=== PATIENT | female | born 1940 | race Caucasian/White ===

== ENCOUNTER → 2018-07-16 | Day surgery (SDC) | payer MEDICARE ==
[2018-07-15 16:08] LABS: BASOPHILS # (AUTO) 0.1 (0.0-0.1); BASOPHILS % 0.7 % (0.0-1.0); EOSINOPHILS # (AUTO) 0.1 (0.0-0.4); HEMOGLOBIN 12.9 g/dL (12.0-16.0); LYMPHOCYTES # (AUTO) 1.6 (1.0-3.2); MEAN CORPUSCULAR HEMOGLOBIN 31.9 pg (28-32); MEAN CORPUSCULAR HGB CONC 32.3 g/dL (31-35); MONOCYTES # (AUTO) 0.6 (0.2-0.8); MONOCYTES % 8.3 % (4.4-11.3); NEUTROPHILS # (AUTO) 4.6 (2.1-6.9); NEUTROPHILS % 65.6 % (38.7-80.0); PLATELET COUNT 187 x10e3/uL (140-360); RED BLOOD COUNT 4.04 x10e6/uL (3.6-5.1)
--- NOTE | 2018-07-15 16:19 | Diagnostic Imaging Report ---
EXAMINATION: CHEST 2 VIEWS INDICATION: \S\PER PROTOCOL \S\PRE ADMIT COMPARISON: None FINDINGS: PA and lateral views TUBES and LINES: None. LUNGS: Lungs are well inflated. Lungs are clear. There is no evidence of pneumonia or pulmonary edema. PLEURA: No pleural effusion or pneumothorax. HEART AND MEDIASTINUM: The cardiomediastinal silhouette is unremarkable. Mild atherosclerotic calcifications of the aortic arch. BONES AND SOFT TISSUES: Cervical spine fusion. Metallic hardware overlying the right humeral head. Mild degenerative changes of the thoracic spine. Surgical clips overlying the upper abdomen on lateral view. UPPER ABDOMEN: No free air under the diaphragm. IMPRESSION: No acute thoracic abnormality. Signed by: Dr. Mercedes High M.D. on 07/15/2018 4:15 PM
[2018-07-15 16:29] LABS: ANION GAP 14.2 mmol/L (8-16); BLOOD UREA NITROGEN 23 mg/dL (7-26); BUN/CREATININE RATIO 26 (6-25); CALCIUM 9.6 mg/dL (8.4-10.2); CARBON DIOXIDE 27 mmol/L (22-29); CHLORIDE 104 mmol/L (98-107); CREATININE, SERUM 0.88 mg/dL (0.57-1.11); EST GLOMERULAR FILTRATION RATE > 60 ML/MIN (60-); GLUCOSE 95 mg/dL (74-118); POTASSIUM 4.2 mmol/L (3.5-5.1); SODIUM 141 mmol/L (136-145)
[~2018-07-16] MED LIST: ALBUTEROL0.63 MG/3 INH; ASPIR 8181 MG PO; BOTULINUM TOXIN TYPE A 100 UNIT VIAL IM ONE; CETIRIZINE HCL10 MG PO; DEXAMETHASONE SOD PHOS INJ 4 MG/ML VIAL ONE; FLONASE; GABAPENTIN100 MG PO; GENTAMICIN 80MG/NS 100 ML 200 ML IV ONE; IOPAMIDOL 610MG/1ML 300 MG/ML VIAL IV ONE; IPRAT-ALBUT 0.5-3 ML INH; LIDOCAINE HCL 2% LOCAL INJ 5 ML SDV VIAL INJ ONE; LISINOPRIL10 MG PO; MONTELUKAST SOD10 MG PO; NORCO 5-325 TA1 EACH PO; OMEPRAZOLE40 MG PO; ONDANSETRON HCL INJ 2 MG/ML VIAL ONE; ONE DAILY1 EAC1 PO; PROPOFOL IV EMULSION 10 MG/ML 20 ML VIAL ONE; ROCURONIUM BROMIDE 10 MG/ML 5ML VIAL ONE; SEVOFLURANE INHAL SOLN 250 ML PEN BTL ONE; SIMVASTATIN40 MG PO; SYMBICORT 80-10.2 GM INH; TESSALON PERLE100 MG PO; TIZANIDINE HCL4 MG PO; TRIAMTERENE-HCTZ1 EA PO; VALIUM5 MG PO; VIT D3 PO; VIT E PO
[2018-07-16 13:05] VITALS: BP 122/72
--- OUTSIDE RECORDS SUMMARY | 2018-07-22 12:33 | XMS REPORT | Summary of Care ---
Author Author [facility] Outpatient Imaging [facility] Outpatient Imaging [place] Address Unknown Phone Unavailable Encounter HQ Valdor_leticia(FIN) [id number] Date(s): 10/19/15 - 10/19/15 [facility] Outpatient Imaging [place] [address] [place] [address] [phone] Discharge Disposition: Home Attending Physician: Amadou Gregory MD Vital Signs No data available for this section Problem List Condition Effective Dates Status Health Status Informant Chest Active pain(Confirmed) HLD - Active Hyperlipidemia(Confi rmed) HTN Resolved (hypertension)(Confi rmed) HTN - Active Hypertension(Confirm ed) Hypercholesterolemia Resolved (Confirmed) Implant(Confirmed)1 Active 1Kidney and bladder device that is implanted in the Left hip Allergies, Adverse Reactions, Alerts Substance Reaction Severity Status cipro Active Tape Active Medications No data available for this section Results No data available for this section Immunizations Vaccine Date Refusal Reason pneumococcal 23-valent vaccine 02/03/11 Procedures Procedure Date Related Diagnosis Body Site Abdominal hysterectomy Appendectomy Cataract surgery1 Cholecystectomy Kidney biopsy2 Replacement of electronic stimulator into bladder3 Suspension of bladder4 Tonsillectomy 1bilat 2removal of kidney stones 3Placed in left hip 4x3 Social History No data available for this section Assessment and Plan No data available for this section
--- OUTSIDE RECORDS SUMMARY | 2018-07-22 12:33 | XMS REPORT | Summary of Care ---
Author Author [facility] Outpatient Imaging [facility] Outpatient Imaging [place] Address Unknown Phone Unavailable Encounter HQ Encntr_alias(FIN) [id number] Date(s): 11/13/17 - 11/13/17 [facility] Outpatient Imaging [place] [address] [facility] [address] [place], [place] [address]- [phone] Encounter Diagnosis Encounter for screening mammogram for malignant neoplasm of breast (Final) - 11/14/17 Discharge Disposition: Home or Self Care Attending Physician: Amadou Gregory MD Vital Signs No data available for this section Problem List Condition Effective Dates Status Health Status Informant Chest Active pain(Confirmed) HLD - Active Hyperlipidemia(Confi rmed) HTN Resolved (hypertension)(Confi rmed) HTN - Active Hypertension(Confirm ed) Hypercholesterolemia Resolved (Confirmed) Allergies, Adverse Reactions, Alerts Substance Reaction Severity Status cipro Active Tape Active Medications No data available for this section Results No data available for this section Immunizations Given and Recorded Vaccine Date Status Refusal Reason pneumococcal 23-valent vaccine 02/03/11 Given Procedures Procedure Date Related Diagnosis Body Site Status Abdominal hysterectomy Completed Appendectomy Completed Cataract surgery1 Completed Cholecystectomy Completed Kidney biopsy2 Completed Replacement of electronic stimulator into Completed bladder3 Suspension of bladder4 Completed Tonsillectomy Completed 1bilat 2removal of kidney stones 3Placed in left hip 4x3 Social History No data available for this section Assessment and Plan No data available for this section
--- OUTSIDE RECORDS SUMMARY | 2018-07-22 12:33 | XMS REPORT | Summary of Care ---
Author Author [facility] Outpatient Imaging [facility]patient Imaging [place] Address Unknown Phone Unavailable Encounter HQ Toya_leticia(FIN) [id number] Date(s): 12/16/17 - 12/16/17 [facility] Outpatient Imaging [place] [address] [facility] [address] [place], [place] [address]- [phone] Encounter Diagnosis Unspecified abdominal pain (Final) - 12/20/17 Calculus of kidney (Final) - Other specified disorders of kidney and ureter (Final) - Cyst of kidney, acquired (Final) - Discharge Disposition: Home or Self Care Attending [...]
--- OUTSIDE RECORDS SUMMARY | 2018-07-22 12:33 | XMS REPORT | Summary of Care ---
Author Author [facility] Outpatient Imaging [facility] Outpatient Imaging [place] Address Unknown Phone Unavailable Encounter HQ Valdor_leticia(FIN) [id number] Date(s): 02/20/18 - 02/20/18 [facility] Outpatient Imaging [place] [address] [facility] [address] [place] [address]- [phone] Discharge Disposition: Home or Self Care Attending [...]
--- OUTSIDE RECORDS SUMMARY | 2018-07-22 12:33 | XMS REPORT | Summary of Care ---
Author Organization Unknown Address Unknown Phone Unavailable Encounter HQ Encntr_leticia(FIN) [id number] Date(s): 08/23/14 - 08/23/14 [facility] [address] Discharge Disposition: Home Physician Attending: Amadou Gregory MD Physician_Referring: Amadou Gregory MD Reason for Visit BREAST MASS Problem List Condition Effective Dates Status Health Status Informant Chest Active pain(Confirmed) HLD - Active Hyperlipidemia(Confi rmed) HTN Resolved (hypertension)(Confi rmed) HTN - Active Hypertension(Confirm ed) Hypercholesterolemia Resolved (Confirmed) Implant(Confirmed)1 Active 1Kidney and bladder device that is implanted in the Left hip Allergies, Adverse Reactions, Alerts Substance Reaction Severity Status cipro Active Tape Active Medications No data available for this section Medications Administered During Your Visit No data available for this section Immunizations Vaccine Date Refusal Reason pneumococcal 23-valent vaccine 02/03/11
--- OUTSIDE RECORDS SUMMARY | 2018-07-22 12:33 | XMS REPORT | Summary of Care ---
Author Author [facility] Kuldip [facility] Organization [facility] Address Unknown Phone Unavailable Encounter HQ Carmenntr_leticia(FIN) [id number] Date(s): 12/17/16 - 01/15/17 [facility] Kuldip [facility] Discharge Disposition: Home or Self Care Attending Physician: Aston Rodgers MD Vital Signs No data available for [...]
--- OUTSIDE RECORDS SUMMARY | 2018-07-22 12:33 | XMS REPORT | Summary of Care ---
Author Author [facility] Outpatient Imaging [facility] Outpatient Imaging [place] Address Unknown Phone Unavailable Encounter HQ Armando(FIN) [id number] Date(s): 01/05/16 - 01/05/16 [facility] Outpatient Imaging [place] [address] [place], [place] [address]- [phone] Discharge Disposition: Home Attending Physician: Alvarado Angeles MD Vital Signs No data available for [...]
--- OUTSIDE RECORDS SUMMARY | 2018-07-22 12:33 | XMS REPORT | Summary of Care ---
Author Organization Unknown Address Unknown Phone Unavailable Encounter HQ Armando(FIN) [id number] Date(s): 07/23/14 - 07/23/14 [facility] Outpatient Imaging [place] [address] [place], [place] [address] Discharge Disposition: Home Physician Attending: Amadou Gregory MD Reason for Visit V76.11 - SCREEN MAMMOGRA Problem List Condition Effective Dates Status Health [...]
--- OUTSIDE RECORDS SUMMARY | 2018-07-22 12:33 | XMS REPORT | Summary of Care ---
Author [facility] Organization [facility] Address Unknown Phone Unavailable Encounter HQ Valdor_leticia(FIN) [id number] Date(s): 01/16/17 - 02/14/17 [facility] Discharge Disposition: Home or Self Care Attending [...]
--- OUTSIDE RECORDS SUMMARY | 2018-07-22 12:33 | XMS REPORT | Summary of Care ---
Author Organization Unknown Address Unknown Phone Unavailable Encounter HQ Toya_leticia(FIN) [id number] Date(s): 09/16/14 - 09/16/14 [facility] Outpatient Imaging - [place] [address] Discharge Disposition: Home Physician Attending: Soham Woods MD Reason for Visit V13.01 - PRSNL HST URNR Problem List Condition Effective Dates Status Health [...]
--- OUTSIDE RECORDS SUMMARY | 2018-07-22 12:33 | XMS REPORT | Summary of Care ---
Author Author [facility] Outpatient Imaging [facility] Outpatient Imaging [place] Address Unknown Phone Unavailable Encounter HQ Armando(FIN) [id number] Date(s): 02/01/16 - 02/01/16 [facility] Outpatient Imaging [place] [address] [place] [address] [phone] Discharge Disposition: Home Attending Physician: Alvarado Angeles [...]
--- OUTSIDE RECORDS SUMMARY | 2018-07-22 12:33 | XMS REPORT | Summary of Care ---
Author [facility] Organization [facility] Address Unknown Phone Unavailable Encounter HQ Toya_leticia(FIN) [id number] Date(s): 02/26/17 - 03/27/17 [facility] Discharge Disposition: Home or Self [...]
--- OUTSIDE RECORDS SUMMARY | 2018-07-22 12:33 | XMS REPORT | Summary of Care ---
Author Author [facility] Organization [facility] Address Unknown Phone Unavailable Encounter HQ Armando(FIN) [id number] Date(s): 10/04/17 - 11/02/17 [facility] Encounter Diagnosis Postlaminectomy syndrome, not elsewhere classified (Final) - 11/06/17 Cervicalgia (Final) - Weakness (Final) - Radiculopathy, cervical region (Final) - Discharge Disposition: Home or Self Care Attending Physician: Ramona Regalado MD Vital Signs No data available for [...]
--- OUTSIDE RECORDS SUMMARY | 2018-07-22 12:33 | XMS REPORT | Summary of Care ---
Author Author [facility] Outpatient Imaging [facility] Outpatient Imaging [place] Address Unknown Phone Unavailable Encounter HQ Carmenntr_leticia(FIN) [id number] Date(s): 05/22/17 - 05/22/17 [facility] Outpatient Imaging [place] [address] [facility] [address] [place], [place] [address] [phone] Discharge Disposition: Home or Self Care Attending [...]
--- OUTSIDE RECORDS SUMMARY | 2018-07-22 12:33 | XMS REPORT | Summary of Care ---
Author Author [facility] Kuldip [facility] Organization [facility] Address Unknown Phone Unavailable Encounter HQ Toya_leticia(FIN) [id number] Date(s): 09/04/17 - 10/03/[facility] Discharge Disposition: Home or Self Care Attending [...]
--- OUTSIDE RECORDS SUMMARY | 2018-07-22 12:33 | XMS REPORT | Summary of Care ---
Author Author [facility] Organization [facility] Address Unknown Phone Unavailable Encounter HQ Armando(MASOUD) [id number] Date(s): 05/09/15 - 05/09/15 [facility] [address] [place] [address]- Discharge Disposition: Home Attending Physician: Amadou Gregory MD Referring Physician: Amadou Gregory MD Vital Signs No [...]
--- OUTSIDE RECORDS SUMMARY | 2018-07-22 12:33 | XMS REPORT | Summary of Care ---
Author Author [facility] Outpatient Imaging [facility] Outpatient Imaging [place] Address Unknown Phone Unavailable Encounter HQ Valdor_leticia(FIN) [id number] Date(s): 12/16/15 - 12/16/[address] [facility] Outpatient Imaging [place] [address] [place] [address]- [phone] Discharge Disposition: Home Attending Physician: Amadou Gregory [...]
--- OUTSIDE RECORDS SUMMARY | 2018-07-22 12:33 | XMS REPORT | Summary of Care ---
Author Author [facility] Outpatient Imaging [facility] Outpatient Imaging [place] Address Unknown Phone Unavailable Encounter HQ Valdor_leticia(FIN) [id number] Date(s): 04/17/16 - 04/17/16 [facility] Outpatient Imaging [place] [address] [place] [address] [phone] Discharge Disposition: Home Attending Physician: Amadou Gregory [...]
--- OUTSIDE RECORDS SUMMARY | 2018-07-22 12:33 | XMS REPORT | Continuity of Care Document ---
Author Author [facility] Interface Address Unknown Phone Unavailable Problems Problem Status Onset Date Classification Date Reported Comments Source Unspecified abdominal pain 12/21/2017 03/24/2018 [facility] Encounter for screening mammogram for malignant neoplasm of breast 11/15/2017 02/19/2018 [facility] Postlaminectomy syndrome, not elsewhere classified 11/07/2017 02/08/2018 [facility] CERVICAL PAIN Active 03/21/2017 [facility] S/P RT SHOULDER RTC REPAIR Active 09/06/2016 [facility] S/P REVERSE RTC REPAIR Active 09/06/2016 [facility] 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 Active 08/09/2016 [facility] M79.645 - PAIN IN LEFT FINGER(S) [facility] Active 05/04/2015 [facility] 174.3 BREAST CANCER Active 05/04/2015 [facility] BREAST MASS Active 08/18/2014 [facility] 793.80 Active 08/10/2014 [facility] Discharge Diagnosis: Fall 06/20/2014 06/22/2014 [facility] Discharge Diagnosis: Neck pain 06/20/2014 06/22/2014 [facility] FALL Active 06/20/2014 [facility] Chest pain Active Problem 03/24/2018 [facility], [facility] [place],[facility] HLD - Hyperlipidemia Active Problem 03/24/2018 [facility], [facility] [place],[facility] HTN (<span ID="[id number]">Confirmed</span>) Resolved Problem 07/15/2015 [facility], [facility] [place] HTN - Hypertension Active Problem 03/24/2018 [facility], [facility] [place],[facility] Hypercholesterolemia Resolved Problem 03/24/2018 [facility], [facility] [place],[facility] HTN (<span ID="[id number]">Confirmed</span>) Resolved Problem 03/24/2018 [facility] Calculus of kidney 03/24/2018 [facility] Other specified disorders of kidney and ureter 03/24/2018 [facility] Cyst of kidney, acquired 03/24/2018 [facility] Implant<sup>1</sup> Active Problem 10/06/2017 Kidney and bladder device that is implanted in the Left hip [facility], [facility] [place],[facility] Cervicalgia 02/08/2018 [facility] Weakness 02/08/2018 [facility] Radiculopathy, cervical region 02/08/2018 [facility] MAL NAVARRO BREAST LOW-INNER Active [facility] MALIG NEOPLASM OF LOWER-INNER QUADRANT O Active [facility] OTH ABN AND INCONCLUSIVE FINDINGS ON DX Active [facility] Medications Medication Details Route Status Patient Instructions Ordering Provider Order Date Source Cyclobenzaprine hydrochloride 10 MG Oral Tablet [Flexeril] 10 mg=1 tab, PO, TID, for spasm, # 30 tab, 0 Refill(s) Active 06/21/2014 [facility] Flexeril 10 mg, Route: PO, ONCE, Dosing Weight 81.818, kg, Priority: STAT, Start date: 06/20/14 19:43:00, Stop date: 06/20/14 19:43:00 Inactive 06/21/2014 [facility] Allergies, Adverse Reactions, Alerts Substance Category Reaction Severity Reaction type Status Date Reported Comments Source cipro Assertion Drug allergy Active [facility] [place] Tape Assertion Propensity to adverse reactions to substance Active [facility] [place] Immunizations Immunization Date Given Site Status Last Updated Comments Source pneumococcal 23-valent vaccine 02/03/2011 Left deltoid completed Toi [facility], [facility] [place],[facility] Results Order Name Results Value Reference Range Date Interpretation Comments Source Abdomen/Pelvis wo IV contrast CT Abdomen/Pelvis wo IV contrast CT Clinical Indication: N20.0 - CALCULUS OF KIDNEY. Comparison: CT abdomen pelvis 06/05/2008, 03/25/2007 TECHNIQUE: Helical imaging was performed from diaphragm through the symphysis with multiplanar reformations obtained. IV CONTRAST: None GI CONTRAST: None CT imaging performed at this location utilizes radiation dose optimization techniques which include one or more of the following: -Automated exposure control -Adjustment of the mA and/or kV according to patient size -Use of iterative reconstruction technique CT Radiation Dose DLP 879 mGy-cm FINDINGS: LUNG BASES: There are coronary artery calcifications. HEPATOBILIARY: The liver is hypodense. The gallbladder is surgically absent. SPLEEN: The spleen is normal in size. 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 PANCREAS: The pancreas has a grossly normal noncontrast appearance. ADRENAL GLANDS: The adrenal glands are normal. KIDNEYS: There are punctate 2 mm nonobstructing renal calyceal calculi bilaterally. A 3.1 cm cyst is present at the mid to lower pole of the right kidney. There is mild right pelvocaliectasis to the level of the ureteropelvic junction. No obstructing stone. No perinephric collections. There is bandlike scarring in the pararenal fat at the region of the lower pole of the right kidney which is similar to multiple prior exams. BOWEL: Evaluation of the bowel is limited without intravenous or oral contrast. There is a small sliding hiatal hernia. The stomach is unremarkable. The bowel is normal in caliber. The appendix is not seen. Colonic diverticulosis without acute inflammatory change. RETROPERITONEUM/PERITONEUM: There is no free fluid. No free air. LYMPH NODES: No adenopathy. VASCULATURE: Atheromatous changes are present within the aorta without aneurysm. PELVIS: There is a small amount of gas within the bladder lumen. There are calcifications within the bladder lumen measuring up to 5 mm. The uterus is surgically absent. MUSCULOSKELETAL: There are postsurgical changes of lumbosacral spinal fusion. Abandoned sacral stimulator lead is seen on the left. IMPRESSION: 1. Mild right pelvocaliectasis to the level of the ureteropelvic junction. No obstructing stone. There is some scarring in the pararenal fat on the right which may involve the UPJ. This is similar to prior exams dating back to 2006. 2. Bilateral nonobstructing nephrolithiasis 3. Bladder calculi 4. Trace gas within the bladder lumen may be related to recent instrumentation. Correlate with urinalysis to exclude infection 5. Right renal cyst 6. Hepatic steatosis 7. 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 FINDINGS: ROTATOR CUFF: 1. Mild thickening and moderate abnormal signal throughout the supraspinatus insertion compatible moderate tendinopathy. No discrete supraspinatus tear. 2. Normal infraspinatus. 3. Normal subscapularis. 4. No rotator cuff muscle atrophy. 5. High riding humeral head which appears secondary to bulky osteophytes of the inferior aspect of the glenohumeral joint resulting in impingement of the acromial undersurface on the supraspinatus bursal surface fibers. LABRUM AND BICEPS TENDON: 6. Multifocal degenerative labral tearing. 7. The biceps tendon is intact and located normally within the bicipital groove. OSSEOUS/ARTICULAR: 8. Mild hypertrophic acromioclavicular arthropathy with mild inferior spurring. 9. Os acromiale is noted, a finding which can be associated with external shoulder impingement. 10. Extensive chronic full-thickness cartilage loss of the humeral head and glenoid articular surfaces with bulky degenerative spurring at the inferior aspect of the glenohumeral joint and subchondral cystic change within the inferior glenoid. 11. No fracture, bone contusion, or aggressive osseous lesion. IMPRESSION: 1. Moderate supraspinatus insertional tendinopathy without a tear. 2. Severe glenohumeral degenerative arthrosis demonstrating extensive chronic full- thickness cartilage loss and bulky degenerative spurring at the inferior aspect of the glenohumeral joint and subchondral cystic change within the inferior glenoid. 3. High riding humeral head which appears secondary to bulky osteophytes of the inferior aspect of the glenohumeral joint resulting in impingement of the acromial undersurface on the supraspinatus bursal surface fibers. 4. Os acromiale is noted, a finding which can be associated with external shoulder impingement. 5. Mild hypertrophic acromioclavicular arthropathy with mild inferior spurring. 6. Multifocal degenerative tearing of the labrum. Thank you referring your patient to [facility] and [facility]. SL: [id number] 07/17/2018 - - Read by: Ryne Menendez MD Dictated Date/time: 07/17/18 13:26 Electronically Signed by: Ryne Menendez MD 07/17/18 13:35 FINAL REPORT [facility] Knee 3 views DX Knee 3 views DX Study: Left knee, 3 views Clinical Indication: M25.562 - ACUTE PAIN Comparison: None FINDINGS: Multiple views of the left knee show moderate medial femorotibial compartment osteoarthrosis with joint space narrowing and marginal osteophyte formation. No acute bony fracture or joint dislocation is seen. No joint effusion is noted. Soft tissues are unremarkable. IMPRESSION: Moderate medial femorotibial compartment osteoarthrosis of the left knee. SL: [id number] 02/20/2018 - - Read by: Talha Miner MD Dictated Date/time: 02/20/18 16:42 Electronically Signed by: Talha Miner MD 02/20/18 16:43 FINAL REPORT [facility] Shoulder series DX Shoulder series DX Study: Left shoulder, 3 views Clinical Indication: M25.512 - ACUTE PAIN Comparison: None FINDINGS: Multiple views of the left shoulder show severe glenohumeral joint osteoarthrosis with joint space narrowing and prominent marginal osteophyte formation. No acute bony fracture or joint dislocation is seen. Mild AC joint osteoarthrosis is noted. Fusion hardware in the lower cervical spine is seen. Soft tissues are unremarkable. IMPRESSION: Severe glenohumeral joint osteoarthrosis. SL: [id number] 02/20/2018 - - Read by: Talha Miner MD Dictated Date/time: 02/20/18 16:41 Electronically Signed by: Talha Miner MD 02/20/18 16:42 FINAL REPORT [facility] Retroperitoneal Complete US Retroperitoneal Complete US EXAM: US RETROPERITONEAL HISTORY: 77 years year-old Female with N20.0 Calculus of kidney; R10.9 Unspecified abdominal pain COMPARISON: US Retroperitoneal 11/22/2014 TECHNIQUE: Multiple longitudinal and transverse real time sonographic images of the kidneys and urinary bladder are obtained. FINDINGS: Right kidney: Size: 10.3 cm. The kidney is normal in size, shape, contour, and position. The cortex is normal in thickness and the corticomedullary differentiation is maintained. Stable mild right pelvocaliectasis. Echogenic focus measuring 4 mm noted in the right kidney likely representing a nonobstructing stone. Septated cyst noted in inferior pole measuring approximately 2.7 x 2.7 x 2.6 cm, previously 2.7 x 2.2 x 2.2 cm. Left kidney: Size: 10.1 cm. The kidney is normal in size, shape, contour, and position. The cortex is normal in thickness and the corticomedullary differentiation is maintained. Mild left pelviectasis, stable. Cyst noted in the inferior pole measuring approximately 1.5 x 1.1 x 1.5 cm. Bladder: Partial distension of the urinary bladder with anechoic fluid is noted. No wall thickening or mass is seen. Bilateral bladder jets noted. Aorta and Inferior Vena Cava: The visualized abdominal aorta is unremarkable. The iliac bifurcation was not well seen due to bowel gas. The intrahepatic IVC is patent. IMPRESSION: 1. Stable mild bilateral pelviectasis, possibly representing extrarenal pelvises. 2. Bilateral renal cysts. 3. Nonobstructing right intrarenal stone. SL: [id number] 12/16/2017 - - Read by: Eloise Gore MD Dictated Date/time: 12/16/17 10:01 Electronically Signed by: Eloise Gore MD 12/16/17 10:08 FINAL REPORT [facility] Breast Mammo Scrn [facility] incl CAD MA Breast Mammo Scrn [facility] incl CAD MA BILATERAL DIGITAL SCREENING MAMMOGRAM WITH CAD: 11/13/2017 CLINICAL: /Routine. Current study was evaluated with a Computer Aided Detection (CAD) system. COMPARISON:Comparison is made to exams dated: 08/20/2016 mammogram, 05/09/2015 mammogram, 08/18/2014 mammogram - [facility], and 07/23/2014 mammogram - [facility]. TECHNIQUE: Mammographic views were obtained using digital acquisition. Current study was also evaluated with a Computer Aided Detection (CAD) system. FINDINGS: There are scattered fibroglandular densities in both breasts. There are benign calcifications in both breasts. There also are post operative findings in the right breast. No significant masses, calcifications, or other findings are seen in either breast. There has been no significant interval change. IMPRESSION: BENIGN RECOMMENDATION:There is no mammographic evidence of malignancy. A 1 year screening mammogram is recommended.(11/14/2018) This exam was interpreted at [id number] for KELSIE [place] 15. Professional services are provided by the [facility]. Ashkan Bruce M.D., cm/marina:11/13/2017 11:54:37 [employer](s): RT Carey(R)(M), [facility] letter sent: BI-RADS 1/2 Mammogram BI-RADS: 2 Benign 11/13/2017 - - Read by: Sina Alexander MD Dictated Date/time: 11/13/17 11:54 Electronically Signed by: Sina Alexander MD 11/13/17 11:54 FINAL REPORT [facility] Ankle 3 views DX Ankle 3 views DX REASON FOR EXAM: M25.572, M25.472 - PAIN, SWELLING. COMPARISON: None. FINDINGS: 3 views of the left ankle. There is mild bimalleolar soft tissue swelling. The ankle mortise appears intact. There is a small plantar calcaneal enthesophyte. There are small bony spurs at the dorsal aspect of the medial cuneiform. There is no demonstrable fracture, dislocation or radiopaque foreign body. IMPRESSION: 1. Mild bimalleolar soft tissue swelling. 2. No demonstrable acute osseous abnormality of the left ankle. SL: 16 10/29/2017 - - Read by: Rickie Cabrales MD Dictated Date/time: 10/29/17 15:16 Electronically Signed by: Rickie Cabrales MD 10/29/17 15:25 FINAL REPORT [facility] Spine cervical 2 or 3 view DX Spine cervical 2 or 3 view DX REASON FOR EXAM: M54.2. Neck pain. COMPARISON: Cervical spine series 01/05/2016. FINDINGS: AP, lateral, swimmer's and open-mouth views of the cervical spine were performed. 4 images are submitted. There are postsurgical changes of anterior fusion from C5 through C7. There is no demonstrable hardware malfunction. There is mature bony fusion of the vertebral endplates at C5-C6 and C6-C7. There is straightening of the normal cervical lordosis. There is approximately 1 to 2 mm anterolisthesis of C2 on C3, 1 to 2 mm anterolisthesis of C3 on C4, 1 to 2 mm retrolisthesis of C4 on C5 and 3 to 4 mm anterolisthesis of C7 on T1. There are mild degenerative changes of the atlantodens interval. There are small anterior marginal osteophytes at C3 and C4. There is diffuse disc space narrowing at C3-C4, C4-C5 and C7-T1. There is uncal vertebral joint hypertrophy at C3-C4 and C4-C5. There is multilevel facet arthropathy. There is no demonstrable fracture, dislocation or prevertebral soft tissue swelling. IMPRESSION: 1. No significant interval change from 01/05/2016. 2. Status post anterior fusion from C5 through C7. 3. Degenerative changes and multilevel grade 1 listhesis of the cervical spine as described above. SL: 16 05/22/2017 - - Read by: Rickie Cabrales MD Dictated Date/time: 05/22/17 13:06 Electronically Signed by: Rickie Cabrales MD 05/22/17 13:22 FINAL REPORT [facility] Digital Mammo DX [place] Digital Mammo DX [place] - DIGITAL MAMMO DX [facility] BILATERAL DIGITAL DIAGNOSTIC MAMMOGRAM WITH CAD: 08/20/2016 CLINICAL: Fibrocystic Disease right IDC s/p lumpectomy and XRT. Current study was evaluated with a Computer Aided Detection (CAD) system. Comparison is made to exams dated: 05/09/2015 mammogram, 08/18/2014 mammogram - [facility], 07/23/2014 mammogram - [facility], 06/04/2012 mammogram, 05/31/2010 mammogram and 02/16/2008 mammogram - [facility]. There are scattered fibroglandular densities in both breasts. The patient is status post lumpectomy right breast. There are post operative and radiation changes in the right breast. There are benign calcifications in both breasts. No significant masses, calcifications, or other findings are seen in either breast. There has been no significant interval change. Breast ultrasound was offered to the patient but was declined. IMPRESSION: BENIGN The patient is status post lumpectomy right breast. There is no mammographic evidence of malignancy. A 1 year screening mammogram is recommended. The results were reviewed with the patient. Josefina rileyt/:08/20/2016 13:50:21 [place] [employer]other: Radha Sotelo, [facility] This exam was dictated and interpreted by [id number] for [facility]. letter sent: Normal exam Mammogram BI-RADS: 2 Benign 08/20/2016 - - Read by: Josefina Reno MD Dictated Date/time: 08/20/16 13:50 Electronically Signed by: Josefina Reno MD 08/20/16 13:50 FINAL REPORT [facility] Ankle 2 views DX Ankle 2 views DX Study: Right ankle, 3 views Clinical Indication: M79.671, M25.571 / RT. FOOT AND ANKLE PAIN Comparison: None FINDINGS: Multiple views of the right ankle show no acute bony fracture or joint dislocation. Ankle mortise is congruent. Soft tissues are unremarkable. IMPRESSION: No acute bony abnormality of the right ankle. SL: [id number] 04/17/2016 - - Read by: Talha Miner MD Dictated Date/time: 04/17/16 09:47 Electronically Signed by: Talha Miner MD 04/17/16 09:47 FINAL REPORT [facility] [place] Foot 2 views DX Foot 2 views DX Study: Right foot, 2 views Clinical Indication: M79.671, M25.571 / RT. FOOT AND ANKLE PAIN Comparison: None FINDINGS: 2 views of the right foot show no acute bony fracture, joint dislocation, or suspicious osseous lesion. The bones are diffusely demineralized. Os navicularis is noted. Mild to moderate midfoot osteoarthrosis is seen. Soft tissues are unremarkable. IMPRESSION: 1. No acute bony abnormality of the right foot. 2. Mild to moderate midfoot osteoarthrosis. SL: [id number] 04/17/2016 - - Read by: Talha Miner MD Dictated Date/time: 04/17/16 09:47 Electronically Signed by: Talha Miner MD 04/17/16 09:48 FINAL REPORT [facility] [place] Shoulder wo contrast MRI Shoulder wo contrast MRI EXAM: MRI of the right shoulder without contrast INDICATION: M75.101 Unspecified rotator cuff tear or rupture of right shoulder, not specified as traumatic, right shoulder pain COMPARISON: Plain films of the right shoulder from 01/05/2016 TECHNIQUE: Multiplanar, multisequence magnetic resonance imaging of the right shoulder was performed without the administration of intravenous gadolinium contrast. FINDINGS: Glenohumeral joint: Negative for acute bony fracture or joint dislocation. Severe glenohumeral joint osteoarthrosis is seen with joint space narrowing and marginal osseous spurring. Large areas of full-thickness cartilage loss throughout the anterosuperior glenoid fossa and superior humeral head are seen with underlying subchondral cystic changes along the superior humeral head. Mild subchondral cystic change along the inferior glenoid is seen. Degenerative tear of the superior glenoid labrum is seen. Small to moderate-sized glenohumeral joint effusion and synovitis is seen, communicating with the subacromial- subdeltoid bursa. Osseous acromion complex: Mesoacromion type os acromiale is seen with trace fluid within the synchondrosis. Mild AC joint osteoarthrosis is seen. Rotator cuff tendons: Mild to moderate infraspinatus tendinosis is seen. There is a full-thickness tear of the supraspinatous tendon with associated delaminating morphology measuring 1.5 cm AP dimension with 2 cm proximal tendon retraction of the torn articular surface fibers and 6 mm proximal tendon retraction of the torn bursal surface fibers. Additional bursal surface partial- thickness tearing of the supraspinatous tendon at the level of the AC joint is also seen. Interstitial fluid tracks proximally along the supraspinatus myotendinous unit. High-grade articular surface partial-thickness tears of the remaining posterior fibers of the supraspinatus tendon are seen. Subscapularis and teres minor tendons are intact. Biceps tendon: Intracapsular biceps tendinosis is seen. No tendon subluxation or dislocation is noted. 9 mm loose body within the biceps tendon sheath of the level of the proximal humeral metaphysis is seen. Soft tissues: Moderate atrophy of the supraspinatus muscle belly is seen. Fatty infiltration of the infraspinatus muscle belly is also seen. IMPRESSION: 1. Severe glenohumeral joint osteoarthrosis with small to moderate-sized glenohumeral joint effusion and synovitis. 2. Full-thickness tear of the supraspinatus tendon with delaminating morphology measuring 1.5 cm AP dimension. There is 2 cm proximal retraction of the torn articular surface fibers and 6 mm tendon retraction of the torn bursal surface fibers. High-grade articular surface partial-thickness tears of the remaining posterior fibers of the supraspinatus tendon are seen. Bursal surface partial- thickness tearing of the supraspinatus tendon at the level of the AC joint is also noted. 3. Mild to moderate infraspinatus tendinosis. 4. Biceps tendinosis with 9 mm loose body within the tendon sheath at the level of the proximal humeral metaphysis. 5. Mild AC joint osteoarthrosis with incidentally noted os acromiale. SL: [id number] 02/01/2016 - - Read by: Talha Miner MD Dictated Date/time: 02/01/16 10:51 Electronically Signed by: Talha Miner MD 02/01/16 11:05 FINAL REPORT [facility] [place] Shoulder series DX Shoulder series DX Patient Name: MARÍA HOLDER : 1940; Age: 75 years Female MR: [id number] Study: Shoulder series DX 01/05/2016 2:02 PM CDT Clinical Indication: PAIN IN RIGHT SHOULDER. COMPARISON: None Views and laterality: December 2015. September 2014. Examination of the shoulder demonstrates moderate right glenohumeral joint osteoarthritic change. Healed right proximal humeral neck fracture. The acromioclavicular joint and coracoclavicular spaces are intact. The acromion and coracoid processes appear normal.The subacromial space is normal. Stable 6 mm cyst in the mid body of the scapula when compared to September 2014. The clavicle is normal. Lower cervical fusion previously described. Right axillary tara. If there is further concern, followup radiographs or MRI of the shoulder may be performed for complete assessment. IMPRESSION: 1. Right glenohumeral joint osteoarthritic change. 2. Old healed proximal humeral fracture. 3. Lower cervical fusion. 4. No acute process. SL: [id number] 01/05/2016 - - Read by: Marlon Castillo MD Dictated Date/time: 01/05/16 17:06 Electronically Signed by: Marlon Castillo MD 01/05/16 17:09 FINAL REPORT [facility] Spine cervical series DX Spine cervical series DX Study: Cervical spine, 5 views Clinical Indication: CERVICALGIA Comparison: None FINDINGS: Multiple views of the cervical spine show visualization through the C7 vertebral body on the lateral view. Postoperative changes of ACDF from C5 through C7 are seen. No hardware fracture or displacement is seen. No suspicious perihardware paralleling lucency is seen. There is grade 1 anterolisthesis of C7 over T1 by 3 mm. Grade 1 anterolisthesis of C3 over C4 by 2 mm is seen. There is also grade 1 retrolisthesis of C4 over C5 by 2 mm. Moderate-severe multilevel degenerative disc disease at C3-C4, C4-C5, and C7-T1 is seen with disc height loss and marginal osteophytes. Moderate-severe facet arthrosis of the cervical spine is seen. Moderate-severe multilevel neural foraminal narrowing throughout the cervical spine is seen. Odontoid process is intact. Prevertebral soft tissues are unremarkable. IMPRESSION: 1. Postoperative changes of ACDF from C5 through C7 without hardware complication. 2. Moderate to severe multilevel degenerative changes throughout the cervical spine. SL: [id number] 01/05/2016 - - Read by: Talha Miner MD Dictated Date/time: 01/05/16 17:30 Electronically Signed by: Talha Miner MD 01/05/16 17:32 FINAL REPORT [facility] Shoulder series DX Shoulder series DX Study: Right shoulder, 2 views Clinical Indication: Right shoulder pain Comparison: Plain films of the right shoulder from 09/29/2014 FINDINGS: Multiple views of the right shoulder show a chronic healed humeral surgical neck fracture. No acute bony fracture or joint dislocation is seen. Moderate-severe glenohumeral joint osteoarthrosis is again noted. Fusion hardware in the lower cervical spine is seen. Right axillary surgical clips are seen. IMPRESSION: Moderate-severe glenohumeral joint osteoarthrosis. SL: [id number] 12/16/2015 - - Read by: Talha Miner MD Dictated Date/time: 12/16/15 11:19 Electronically Signed by: Talha Miner MD 12/16/15 11:20 FINAL REPORT [facility] Finger 3 views DX Finger 3 views DX LEFT FINGER RADIOGRAPH 3 VIEW INDICATION: Left thumb pain COMPARISON: Left hand radiograph 07/12/2015 IMPRESSION: No acute bony abnormalities are visualized. There is no significant interval change in mild arthrosis of the first CMC and MCP joints, characterized by joint space narrowing and mild osteophytosis. SL: 16 10/19/2015 - - Read by: Chris Horn MD Dictated Date/time: 10/19/15 14:41 Electronically Signed by: Chris Horn MD 10/19/15 14:43 FINAL REPORT [facility] Hand 3 views DX Hand 3 views DX Examination: Left hand, 3 views History: PAIN OF LEFT THUMB Comparison: None. Findings: Multiple views of the left hand show no acute bony fracture, joint dislocation, or suspicious osseous erosion. The bones are demineralized. There is mild osteoarthrosis of the thumb MCP joint with mild joint space narrowing and marginal osseous spurring. Severe triscaphe and thumb CMC osteoarthrosis is also seen. Soft tissues are unremarkable. IMPRESSION: 1. No acute bony abnormality of the left hand. 2. Severe triscaphe and thumb CMC osteoarthrosis with mild osteoarthrosis of the thumb CMC joint. SL: 16 07/12/2015 - - Read by: Talha Miner MD Dictated Date/time: 07/12/15 08:45 Electronically Signed by: Talha Miner MD 07/12/15 08:46 FINAL REPORT [facility] Long Breast Complete [place] US Breast Complete Wesley US - BREAST COMPLETE WESLEY US ULTRASOUND OF BOTH BREASTS AND BOTH AXILLA: 05/09/2015 CLINICAL: Pain h/o right breast CA s/p lumpectomy and XRT. Comparison is made to exams dated: 05/09/2015 mammogram, 08/23/2014 ultrasound biopsy, 08/18/2014 ultrasound, 08/18/2014 mammogram - [facility], 07/23/2014 mammogram - [facility] and 06/04/2012 mammogram - [facility]. Color flow and real-time ultrasound of both breasts and both axilla were performed. Ruelas scale images of the real-time examination were reviewed. For both breasts, all 4 quadrants, the retroareolar region and axilla are evaluated in this exam. Prior mass right breast at 7 o'clock has been removed. There is a seroma and a lumpectomy cavity right breast at 7 o'clock. There also is a 1 cm benign hyperechoic lipoma left breast at 7 o'clock that is an incidental finding. No abnormalities were seen sonographically in either axilla. IMPRESSION: BENIGN - FOLLOW-UP RECOMMENDED There is no sonographic evidence of malignancy. There is no mammographic or sonographic abnormality seen in the left breast to correspond with the nipple abnormality/inversion. This likely represents physiologic laxity of supporting structures and is unchanged since at least July 2014. The patient states this is unchanged since her last exam. There is no abnormality seen in the right breast to correspond with the pain which likely represents a scar and post treatment changes. A follow-up mammogram in 6 months is recommended to demonstrate stability. The results were reviewed with the patient. SUMMARY: A follow-up right diagnostic mammogram with possible ultrasound in 6 months is recommended to demonstrate stability given the patient's history of prior lumpectomy. Josefina Reno M.D. jt/:05/09/2015 15:09:03 Asphalt Smoother: Andrew Rey, [facility] This exam was dictated and interpreted by [id number] for [facility]. letter sent: Normal exam Ultrasound BI-RADS: 2 Benign 05/09/2015 - - Read by: Josefina Reno MD Dictated Date/time: 05/09/15 15:09 Electronically Signed by: Josefina Reno MD 05/09/15 15:09 FINAL REPORT [facility] Digital Mammo DX Wesley MA Digital Mammo DX Wesley MA - DIGITAL MAMMO DX WESLEY MA BILATERAL DIGITAL DIAGNOSTIC MAMMOGRAM WITH CAD: 05/09/2015 CLINICAL: Breast Cancer right IDC s/p lumpectomy and XRT. Current study was evaluated with a Computer Aided Detection (CAD) system. Comparison is made to exams dated: 08/18/2014 mammogram - [facility], 07/23/2014 mammogram - [facility], 06/04/2012 mammogram, 05/31/2010 mammogram and 02/16/2008 mammogram - [facility]. There are scattered fibroglandular densities in both breasts. The patient is status post lumpectomy right breast with associated post operative changes. There are benign calcifications in both breasts. No significant masses, calcifications, or other findings are seen in either breast. IMPRESSION: INCOMPLETE: NEEDS ADDITIONAL IMAGING EVALUATION The patient is status post lumpectomy right breast. There is no mammographic abnormality seen in the left breast to correspond with the nipple inversion/abnormality, however ultrasound is recommended. The patient has documented prior left nipple inversion in 2013. There is no mammographic abnormality seen in the right breast to correspond with the pain which likely represents a scar or post-treatment changes, however ultrasound is recommended. SUMMARY: Ultrasound will be performed at this time; please see dedicated separate report. Josefina Reno M.D. jt/:05/09/2015 15:00:07 Asphalt Smoother: Lily Mckinley, [facility] This exam was dictated and interpreted by [id number] for [facility]. Mammogram BI-RADS: 0 Indeterminate 05/09/2015 - - Read by: Josefina Reno MD Dictated Date/time: 05/09/15 15:00 Electronically Signed by: Josefina Reno MD 05/09/15 15:00 FINAL REPORT [facility] Retroperitoneal limited US Retroperitoneal limited US RETROPERITIONEAL ULTRASOUND History- renal insufficiency, abnormal labs. 585.3. Noncontrast CT studies of the abdomen of 06/05/2008 and 03/25/2007 were reviewed. TECHNIQUE: The kidneys and bladder were evaluated utilizing dynamic scanning. FINDINGS: There is mild prominence of the right pyelocalyceal system which may represent a prominent extra renal pelvis. The findings are similar to the prior CT scan. Very mild or early hydronephrosis cannot be completely excluded. This is of uncertain etiology. There is no hydronephrosis on the left. There is a small (2.7 x 2.2 x 2.2 cm) cyst involving the anterior aspect of the lower pole of the right kidney. This has increased in size on the CT scan 06/05/2008 the which time it measured approximately 1 cm. There also is a tiny nodule within the cyst. Overall, the cyst and benign appearing but since this has increased in size and has a small mural nodule, a follow-up study in approximately 6 months is suggested. It is noted the prior CT scan demonstrated a cyst within the left kidney laterally which is not well-seen on this study. There are tiny calcifications in the midpolar region of the left kidney and lower pole the right kidney which are unchanged and are consistent with stable small renal calculi. Renal measurements - Right kidney: 9.0 x 5.3 x 4.5 cm. Left kidney: 9.9 x 5.4 x 5.3 cm. Bladder - partially filled and grossly unremarkable. CONCLUSION: 1. Mild prominence of the right pyelocalyceal system. This appears similar to prior CT scan of 06/05/2008 and probably represents a prominent extra renal pelvis. Very mild or early hydronephrosis cannot be excluded. 2. There is no hydronephrosis on the left. 3. The kidneys are normal in size and echogenicity. 4. 2.7 x 2.2 x 2.2 cm right renal cyst. The cyst has increased in size for a prior CT scan of a 06/05/2008 and also shows a tiny mural nodule. Is also noted there was a left renal cyst on the prior CT scan is not well demonstrated on this study. For these reasons and also to follow-up the prominent right pyelocalyceal system, a follow-up study in 6 months is suggested. 5. Tiny calcifications within each kidney which are similar to the prior CT scans, probable stable calculi. SL: 16 Alexis Pinto M.D. 11/22/2014 - - Read by: Alexis Pinto MD Dictated Date/time: 11/22/14 10:11 Electronically Signed by: Alexis Pinto MD 11/22/14 10:23 FINAL REPORT [facility] Shoulder series DX Shoulder series DX RIGHT SHOULDER (2 views) HISTORY: Right shoulder pain. 719.41 TECHNIQUE: The right shoulder was evaluated in internal and external rotation. A transthoracic view was also obtained. FINDINGS: 1. Slight deformity of the right humeral neck probably related to an old healed fracture. 2. Mild degenerative change involving the glenohumeral joint. There slight narrowing of the joint and mild anterior osteophyte formation. 3. The acromioclavicular joint is intact. 4. There is no evidence of acute fracture, dislocation, or acute change. 5. There are no destructive lesions to suggest metastasis. 6. Postoperative change involving the right axilla. Coding: Shoulder series CPT Code: 14212 SL: 12 Alexis Pinto M.D. 09/29/2014 - - Read by: Alexis Pinto MD Dictated Date/time: 09/29/14 12:20 Electronically Signed by: Alexis Pinto MD 09/29/14 12:22 FINAL REPORT [facility] [place] Spine lumbar 2 or 3 views DX Spine lumbar 2 or 3 views DX HISTORY: Interstitial cystitis TECHNIQUE: AP and lateral views of the lumbar spine COMPARISON: None FINDINGS: No acute fracture or dislocation. No suspicious osseous lesion. Moderate multilevel degenerative disease is seen, with multilevel facet arthrosis. Findings are worse from L4-S1. Changes related to previous posterior fusion seen at L4-S1. Thin curvilinear radiopaque density is seen in the projection of S3. Note is made of cholecystectomy clips. IMPRESSION: 1. Moderate multilevel degenerative disc disease. 2. Curvilinear radiopaque density in the projection of the coccyx, correlate with patient's stent device. 09/16/2014 - - Read by: Carmenza Armenta MD Dictated Date/time: 09/16/14 12:59 Electronically Signed by: Carmenza Armenta MD 09/16/14 13:02 FINAL REPORT [facility] [place] Spine sacrum AP/Lat DX Spine sacrum AP/Lat DX HISTORY: Cystitis TECHNIQUE: Two views of the sacrum and coccyx COMPARISON: None FINDINGS: No acute osseous abnormalities. Partial visualization of cervical hardware in L4-S1. Curvilinear radiopaque density is seen projecting at S3, correlate with the patient's previously inserted stent device. IMPRESSION: Curvilinear radiopaque density seen projecting at S3, correlate with positioning of patient's known stent. 09/16/2014 - - Read by: Carmenza Armenta MD Dictated Date/time: 09/16/14 13:01 Electronically Signed by: Carmenza Armenta MD 09/16/14 13:01 FINAL REPORT [facility] [place] Breast biopsy uni US Guided w clip MA Breast biopsy uni US Guided w clip MA - BREAST BIOPSY UNI US GUIDED W CLIP MA/R ULTRASOUND GUIDED BIOPSY RIGHT BREAST WITH MARKING DEVICE INSERTED AND POST DIGITAL MAMMOGRAPHIC AND ULTRASOUND IMAGIN08/23/2014 CLINICAL: Mass. PATIENT CONSENT: Oral and written informed consent was obtained. Risks, benefits, and alternatives were discussed with the patient. Risks include but are not limited to pain, infection, bleeding, incomplete procedure, repeat procedure, pneumothorax, damage to surrounding tissues, and allergic reaction. The patient understands the plan and wishes to proceed. A time out was performed immediately prior to the procedure. Correlation is made to exams dated: 08/18/2014 ultrasound, 08/18/2014 mammogram - [facility], 07/23/2014 mammogram - [facility], 06/04/2012 mammogram, 05/31/2010 mammogram and 02/16/2008 mammogram - [facility]. An ultrasound guided biopsy using real-time ultrasound was performed for the concerning 1 cm indistinct irregular shaped solid mass located in the right breast at 7 o'clock posterior depth 4 cm from the nipple. This was described on the previous mammography and ultrasound reports. The skin was prepped in the usual manner. 8 ccs of 1% lidocaine was administered during the procedure. A skin shannon was made in the breast. The abnormality was approached from the lateral aspect. A 12 gauge biopsy needle was placed adjacent to the abnormality under ultrasound guidance. Once the needle was documented to be in the correct location, three cores were obtained using the vacuum assisted Bard EnCor Enspire device. A Gel Brady UltraCor S shaped clip was inserted into the biopsy cavity. A skin adhesive and a sterile dressing were applied to the access site. Post procedure digital mammographic and ultrasound imaging demonstrates the clip at the targeted area and partial removal of the abnormality. The specimens were sent to the laboratory for pathological analysis. IMPRESSION: ULTRASOUND GUIDED BIOPSY MALIGNANT Ultrasound guided biopsy of the 1 cm solid mass in the right breast at 7 o'clock posterior depth 4 cm from the nipple was successful with no apparent post procedure complications. Pathology indicates malignant results - "INVASIVE DUCTAL CARCINOMA, NUCLEAR GRADE 1-2. - Negative for lymphovascular invasion. - Immunostains: SMM and p63 show absence of myoepithelial layer; Estrogen receptor positive, progesterone receptor positive, HER2 negative". Pathology results are concordant with imaging findings. A surgical consult, a surgical excision and a chemo oncology consultation are recommended. A phone call was made to the physician at 1355 hrs 08/25/14. Josefina perez/:08/26/2014 14:42:00 Asphalt Smoother: Andrew Rey [facility] This exam was dictated and interpreted by [id number] for [facility]. 08/23/2014 - - Read by: Josefina Reno MD Dictated Date/time: 08/26/14 14:42 Electronically Signed by: Josefina Reno MD 08/26/14 14:42 FINAL REPORT [facility] Breast US Breast US - BREAST US/R ULTRASOUND OF RIGHT BREAST AND RIGHT AXILLA: 08/18/2014 CLINICAL: Mass. Comparison is made to exams dated: 08/18/2014 mammogram - [facility], 07/23/2014 mammogram - [facility], 06/04/2012 mammogram, 05/31/2010 mammogram and 02/16/2008 mammogram - [facility]. Color flow and real-time ultrasound of the right breast and axilla were performed. Ruelas scale images of the real-time examination were reviewed. There is a 1 cm taller than wide irregular solid mass with an indistinct margin in the right breast at 7 o'clock posterior depth 4 cm from the nipple. This irregular solid mass is hypoechoic with posterior acoustic shadowing. This correlates with mammography findings. Color flow imaging demonstrates that there is no vascularity present. No abnormalities were seen sonographically in the right axilla. IMPRESSION: HIGHLY SUGGESTIVE OF MALIGNANCY - FOLLOW-UP RECOMMENDED The 1 cm taller than wide irregular solid mass in the right breast likely represents carcinoma and is highly suggestive of malignancy. An ultrasound guided biopsy is recommended. A phone call was made to the physician's office and the results were reviewed with the patient. SUMMARY: The patient scheduled her procedure prior to leaving the [facility]. Critical findings were called to the physician's nurse Court at 0856 hours on the day of the exam. Josefina perez/marina:08/18/2014 08:56:15 Asphalt Smoother: Andrew Rey [facility] This exam was dictated and interpreted by [id number] for [facility]. letter sent: Biopsy Ultrasound BI-RADS: 5 Highly suggestive of malignancy 08/18/2014 - - Read by: Josefina Reno MD Dictated Date/time: 08/18/14 08:56 Electronically Signed by: Josefina Reno MD 08/18/14 08:56 FINAL REPORT [facility] Digital Mammo DX Uni MA Digital Mammo DX Uni MA - DIGITAL MAMMO DX UNI MA/R UNILATERAL RIGHT DIGITAL DIAGNOSTIC MAMMOGRAM WITH CAD: 08/18/2014 CLINICAL: Mammographic Abnormality. Current study was evaluated with a Computer Aided Detection (CAD) system. Comparison is made to exams dated: 07/23/2014 mammogram - [facility], 06/04/2012 mammogram and 05/31/2010 mammogram - [facility]. There are scattered fibroglandular densities in the right breast. There is a mass in the right breast at 6 o'clock posterior depth. This is seen in additional views. No other significant masses or calcifications are seen in the breast. IMPRESSION: INCOMPLETE: NEEDS ADDITIONAL IMAGING EVALUATION The mass in the right breast is indeterminate. An ultrasound is recommended. The results were reviewed with the patient. SUMMARY: Ultrasound will be performed at this time; please see dedicated separate report. Josefina perez/penrad:08/18/2014 08:49:39 Asphalt Smoother: Radha Sotelo, [facility] This exam was dictated and interpreted by [id number] for [facility]. Mammogram BI-RADS: 0 Indeterminate 08/18/2014 - - Read by: Josefina Reno MD Dictated Date/time: 08/18/14 08:49 Electronically Signed by: Josefina Reno MD 08/18/14 08:49 FINAL REPORT [facility] Digital Mammo Screening [place] MA Digital Mammo Screening [place] MA - DIGITAL MAMMO SCREENING WESLEY MA BILATERAL DIGITAL SCREENING MAMMOGRAM WITH CAD: 07/23/2014 CLINICAL: Other Screening Mammogram. Current study was evaluated with a Computer Aided Detection (CAD) system. Comparison is made to exams dated: 06/04/2012 mammogram, 05/31/2010 mammogram and 02/16/2008 mammogram - [facility]. There are scattered fibroglandular densities in both breasts. There are benign calcifications in the left breast. There is a mass in the right breast at 7 o'clock posterior depth. No other significant masses, calcifications, or other findings are seen in either breast. IMPRESSION: INCOMPLETE: NEEDS ADDITIONAL IMAGING EVALUATION The mass in the right breast is indeterminate. Spot compression and lateral views as well as an ultrasound are recommended. Josefina perez/penrad:08/05/2014 15:10:05 Asphalt Smoother: Paula DUMONT)(Jimmie), [facility] This exam was dictated and interpreted by [id number] for [facility] [place]. letter sent: Additional Imaging Mammogram BI-RADS: 0 Indeterminate 07/23/2014 - - Read by: Josefina Reno MD Dictated Date/time: 08/05/14 15:10 Electronically Signed by: Josefina Reno MD 08/05/14 15:10 [facility] [place] [facility] cervical [facility] DX Spine cervical series DX EXAM: Cervical spine. HISTORY: Neck trauma COMPARISON: 03/25/2007. TECHNIQUE: 6 views of the cervical spine FINDINGS: Straightening of the cervical spine may be due to cervical collar or muscle spasm. Otherwise, normal alignment of the cervical spine without acute traumatic injury seen. Anterior fusion C5-C7. Neuroforaminal stenosis on the right at C5-C6. SL: 14 06/20/2014 - - Read by: Andrew Giles MD Dictated Date/time: 06/20/14 19:56 Electronically Signed by: Andrew Giles MD 06/20/14 19:59 FINAL REPORT [facility] Vital Signs Vital Sign Value Date Comments Source Respitory Rate 18 06/21/2014 [facility] Heart Rate 86 06/21/2014 [facility] Temperature Oral (F) 98.0 F 06/21/2014 [facility] Diastolic (mm Hg) 79 06/21/2014 [facility] Systolic (mm Hg) 138 06/21/2014 [facility] Height 160.02 cm 06/20/2014 [facility] Weight 81.818 06/20/2014 [facility] BMI Calculated 31.95 06/20/2014 [facility] Systolic (mm Hg) 158 06/20/2014 [facility] Temperature Oral (F) 98.2 F 06/20/2014 [facility] Respitory Rate 20 06/20/2014 [facility] Heart Rate 87 06/20/2014 [facility] Diastolic (mm Hg) 81 06/20/2014 [facility] Encounters Location Location Details Encounter Type Encounter Number Reason For Visit Attending Provider ADM Date DC Date Status Source [facility] [id number] Moncho Lu 06/20/2014 06/21/2014 [facility] [place] [facility] [id number] Amadou Gregory 07/23/2014 07/24/2014 [facility] Outpatient [id number] Amadou Gregory 08/18/2014 08/19/2014 [facility] Outpatient [id number] Amadou Gregory 08/23/2014 08/24/2014 [facility] [place] [facility] [id number] Soham Nadirpel 09/16/2014 09/17/2014 [facility] [place] [facility] [place] [facility] [id number] Amadou Gregory 09/29/2014 09/30/2014 [facility] Outpatient [id number] Amadou Gregory 05/09/2015 05/10/2015 [facility] [place] [facility] [id number] Amadou Gregory 07/12/2015 07/13/2015 [facility] [place] [facility] [place] [facility] [id number] Amadou Gregory 10/19/2015 10/20/2015 [facility] [place] [facility] [place] [facility] [id number] Amadou Gregory 12/16/2015 12/17/2015 [facility] [place] [facility] [place] [facility] [id number] Alvarado Angeles 01/05/2016 01/06/2016 [facility] [place] [facility] [place] [facility] [id number] Alvarado Angeles 02/01/2016 02/02/2016 [facility] [place] [facility] [id number] Amadou Gregory 04/17/2016 [id number] 08/20/2016 08/21/2016 [facility] [id number] [facility] 12/17/2016 01/16/2017 [facility] [id number] [facility] 01/16/2017 02/15/2017 [facility] [id number] [facility] 02/26/2017 03/28/2017 [facility] [place] [facility] [id number] Amadou Gregory 05/22/2017 05/23/2017 [facility] [place] [facility] [id number] Ramona Sabine 09/04/2017 10/04/2017 [facility] [id number] Ramona Regalado 10/04/2017 11/03/2017 [facility] [place] [facility] [id number] Amadou Gregory 11/13/2017 11/14/2017 [facility] [place] [facility] [place] [facility] [id number] Amadou Gregory 12/16/2017 12/17/2017 [facility] [place] [facility] [place] [facility] [id number] Amadou Gregory 02/20/2018 02/21/2018 [facility] [place] Procedures Procedure Code Date Perfomer Comments Source Abdominal hysterectomy [id number] [facility] [id number] [facility] Cataract surgery<sup>1</sup> [id number] [facility] Cholecystectomy [id number] [facility] Kidney biopsy<sup>2</sup> [id number] removal of kidney stones [facility] Replacement of electronic stimulator into bladder<sup>3</sup> [id number] Placed in left hip [facility] Suspension of bladder<sup>4</sup> [id number] x3 [facility] Tonsillectomy [id number] [facility] Abdominal hysterectomy [id number] [facility] Appendectomy [id number] [facility] Cataract surgery<sup>1</sup> [id number] bilat [facility] Cholecystectomy [id number] [facility] [place] Kidney biopsy<sup>2</sup> [id number] removal of kidney stones [facility] Replacement of electronic stimulator into bladder<sup>3</sup> [id number] Placed in left hip [facility] Suspension of bladder<sup>4</sup> [id number] x3 [facility] Tonsillectomy [id number] [facility] Abdominal hysterectomy [id number] [facility] Appendectomy [id number] [facility] Cataract surgery<sup>1</sup> [id number] bilat [facility] [id number] [facility]<sup>2</sup> [id number] [facility] Replacement of electronic stimulator into bladder<sup>3</sup> [id number] Placed in left hip [facility] Suspension of bladder<sup>4</sup> [id number] x3 [facility] Tonsillectomy [id number] [facility]
--- OUTSIDE RECORDS SUMMARY | 2018-07-22 12:33 | XMS REPORT | Summary of Care ---
Author Author [facility] Organization [facility] Address Unknown Phone Unavailable Encounter HQ Armando(MASOUD) [id number] Date(s): 08/20/16 - 08/20/16 [facility] [address] [place] [address]- Discharge Disposition: Home or Self Care Attending Physician: Amadou Gregory MD Referring Physician: [...]
--- OUTSIDE RECORDS SUMMARY | 2018-07-22 12:33 | XMS REPORT | Summary of Care ---
Author Organization Unknown Address Unknown Phone Unavailable Encounter HQ Toya_leticia(FIN) [id number] Date(s): 09/29/14 - 09/29/14 [facility] Out[facility] [place] [address] [place], [place] [address] Discharge Disposition: Home Physician Attending: Amadou Gregory MD Reason for Visit 719.41 - JOINT PAIN-SHLD Problem List Condition Effective Dates Status Health [...]
--- OUTSIDE RECORDS SUMMARY | 2018-07-22 12:33 | XMS REPORT | Summary of Care ---
Author Organization Unknown Address Unknown Phone Unavailable Encounter HQ Encntr_leticia(FIN) [id number] Date(s): 08/18/14 - 08/18/14 [facility] [address] Discharge Disposition: Home Physician Attending: Amadou Gregory MD Physician_Referring: Amadou Gregory MD Reason for Visit 793.74 Problem List Condition Effective Dates Status Health [...]
--- OUTSIDE RECORDS SUMMARY | 2018-07-22 12:33 | XMS REPORT | Summary of Care ---
Author Organization Unknown Address Unknown Phone Unavailable Encounter CARLOS Roberts(MASOUD) [id number] Date(s): 06/20/14 - 06/20/14 [facility] [address] Discharge Diagnosis: Fall Discharge Diagnosis: Neck pain Discharge Disposition: Home Physician Attending: Moncho Lu MD Reason for Visit FALL Vital Signs Most recent to 1 2 oldest [Reference Range]: Height 160.02 cm (06/20/14 5:55 PM) Temperature Oral 98.0 DegF 98.2 DegF [96.4-99.1 DegF] (06/20/14 8:44 PM) (06/20/14 5:55 PM) Systolic Blood 138 mmHg 158 mmHg Pressure [90-140 (06/20/14 8:44 PM) *HI* mmHg] (06/20/14 5:55 PM) Diastolic Blood 79 mmHg 81 mmHg Pressure [60-90 (06/20/14 8:44 PM) (06/20/14 5:55 PM) mmHg] Respiratory Rate 18 BRMIN 20 BRMIN [14-20 BRMIN] (06/20/14 8:44 PM) (06/20/14 5:55 PM) Peripheral Pulse 86 bpm 87 bpm Rate [60-100 bpm] (06/20/14 8:44 PM) (06/20/14 5:55 PM) Weight 81.818 kg (06/20/14 5:55 PM) Body Mass Index 31.95 m2 (06/20/14 5:55 PM) Problem List Condition Effective Dates Status Health Status Informant Chest Active pain(Confirmed) HLD - Active Hyperlipidemia(Confi rmed) HTN Resolved (hypertension)(Confi rmed) HTN - Active Hypertension(Confirm ed) Hypercholesterolemia Resolved (Confirmed) Implant(Confirmed)1 Active 1Kidney and bladder 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
--- OUTSIDE RECORDS SUMMARY | 2018-07-22 12:33 | XMS REPORT | Summary of Care ---
Author Author [facility] Outpatient Imaging [facility] [place] Address Unknown Phone Unavailable Encounter HQ Toya_leticia(FIN) [id number] Date(s): 07/12/15 - 07/12/15 [facility] Outpatient Imaging [place] [address] [place] [address]- [phone] Discharge Disposition: Home Attending Physician: Amadou Gregory [...]
--- NOTE | 2018-08-19 03:54 | Operative Report ---
DATE OF PROCEDURE: July 16, 2018 PREOPERATIVE DIAGNOSES 1. Refractory urge incontinence. 2. Urinary tract infections. POSTOPERATIVE DIAGNOSES 1. Refractory urge incontinence. 2. Urinary tract infections. 3. Grade 2 cystocele. 4. Mild rectocele. 5. Atrophic (senile) vaginitis. OPERATIONS PERFORMED 1. Cystourethroscopy with bilateral ureteral catheterization and retrograde ureteropyelography (separate procedure performed for the urinary tract infections). 2. Interpretation of retrograde ureteropyelography. 3. Supervision of fluoroscopy. No radiologist present. 4. Cystourethroscopy with intravesical injection of Botox. 5. Pelvic examination under anesthesia. ANESTHESIA: General. COMPLICATIONS: None. CLINICAL SUMMARY: Brittni Rai is a 78-year-old woman with an extensive urological history. The patient has had a history of bilateral nephrolithiasis. She is status post a right nephrolithotomy. The patient has a history of having a left InterStim implant in place and she requested that this be removed. She is aware of the risks of bleeding, infection, injury to adjacent structures, need for additional procedures, and elected to proceed. OPERATIVE PROCEDURE IN DETAIL: Informed consent was verified. Brittni Rai was properly identified, taken to the operating room, placed on the cystoscopy table in supine position. Anesthesia was uneventfully begun. The patient was then carefully and gently re-positioned in the dorsal lithotomy position with all pressure points well padded. Her genitalia were prepared and draped in the usual sterile fashion. A 22.5-Belizean cystoscope sheath with the obturator in place was atraumatically inserted in the patient's urethra and the bladder was drained. Panendoscopy of the urinary bladder revealed no suspicious mucosal lesions, no tumors, no stones, and no diverticula. Normally positioned ad configured ureteral orifices were identified. A ureteral catheter was used to cannulate each ureter and retrograde ureteropyelograms were performed. Interpretation of retrograde ureteropyelography: Contrast was instilled in retrograde fashion bilaterally. The left side was unremarkable. There were no tumors, no stones, no diverticula. Unobstructed drainage was observed. The right hand side exhibited ptosis of the right kidney with hydronephrosis also present. There are signs of prior back surgery with a significant amount of hardware present and there are the contacts from the InterStim lead that the patient has retained due to the fact that when we pulled out the InterStim lead, the lead from these contact points. Botox was dissolved in sterile saline. It was then injected in 1-mL aliquots in an even distribution in the supratrigonal bladder. The patient's bladder was then drained. Pelvic examination under anesthesia revealed a grade 2 cystocele and grade 1 rectocele. No abnormal palpable pelvic masses could be appreciated. There was atrophic (senile) vaginitis. The patient was then uneventfully reversed from anesthesia and taken to recovery room in stable condition. There were no complications to the procedure. She tolerated the procedure well. Explicit postop instructions were given. We will follow the patient up on a long-term basis. Additional followup of course will be performed for the patient's numerous anatomical abnormalities that were noted. Job#: [id number] CF
== END | disposition home or self-care (01) ==
LOC: OR 08:50
PROVIDERS: ATTEND Urology
DX: N39.46 Mixed incontinence (principal); N30.10 Interstitial cystitis (chronic) without hematuria; N31.9 Neuromuscular dysfunction of bladder, unspecified; N81.10 Cystocele, unspecified; N81.6 Rectocele; N95.2 Postmenopausal atrophic vaginitis; R35.1 Nocturia; I12.9 Hypertensive chronic kidney disease with stage 1 through stage 4 chronic kidney disease, or unspecified chronic kidney disease; N18.9 Chronic kidney disease, unspecified; N28.83 Nephroptosis; N13.30 Unspecified hydronephrosis; F32.9 Major depressive disorder, single episode, unspecified; K21.9 Gastro-esophageal reflux disease without esophagitis; Z87.442 Personal history of urinary calculi; Z91.048 Other nonmedicinal substance allergy status; Z88.1 Allergy status to other antibiotic agents; Z01.810 Encounter for preprocedural cardiovascular examination; Z01.812 Encounter for preprocedural laboratory examination; Z01.818 Encounter for other preprocedural examination; Z79.82 Long term (current) use of aspirin; Z68.31 Body mass index [BMI] 31.0-31.9, adult; Z85.3 Personal history of malignant neoplasm of breast
CPT/HCPCS: 36415; 52005; 52287; 71046; 74420; 80048; 85025; 93005; C1758; J0587; J1100; J1580; J2001; J2405; Q9967

== ENCOUNTER → 2019-05-08 | Day surgery (SDC) | payer MEDICARE ==
--- NOTE | 2019-05-06 13:06 | Diagnostic Imaging Report ---
EXAMINATION: CHEST 2 VIEWS INDICATION: Pre-operative COMPARISON: Chest radiograph of 07/15/2018 FINDINGS: LINES/TUBES:None LUNGS:The lungs are well-inflated. No focal consolidation or pulmonary edema. Scattered bibasilar calcified granulomas. PLEURA:No pleural effusion or pneumothorax. MEDIASTINUM:The cardiomediastinal silhouette appears normal in size and shape. Atherosclerotic calcifications of the thoracic aorta. BONES/SOFT TISSUES:No acute osseous injury. Mild degenerative changes of the thoracic spine. Postoperative changes of hemiarthroplasty of both shoulders. Anterior cervical spine fusion hardware present. ABDOMEN:No free air under the diaphragm. Status post cholecystectomy. IMPRESSION: No focal pneumonia or pulmonary edema. Signed by: Charlie James MD on 05/06/2019 1:03 PM
[2019-05-06 13:32] LABS: BASOPHILS # (AUTO) 0.1 (0.0-0.1); BASOPHILS % 0.9 % (0.0-1.0); EOSINOPHILS # (AUTO) 0.1 (0.0-0.4); EOSINOPHILS % 1.5 % (0.0-6.0); HEMATOCRIT 41.5 % (34.2-44.1); HEMOGLOBIN 13.4 g/dL (12.0-16.0); LYMPHOCYTES # (AUTO) 1.5 (1.0-3.2); LYMPHOCYTES % 21.5 % (18.0-39.1); MEAN CORPUSCULAR HEMOGLOBIN 30.7 pg (28-32); MEAN CORPUSCULAR HGB CONC 32.3 g/dL (31-35); MONOCYTES # (AUTO) 0.5 (0.2-0.8); MONOCYTES % 7.7 % (4.4-11.3); NEUTROPHILS # (AUTO) 4.7 (2.1-6.9); NEUTROPHILS % 68.1 % (38.7-80.0); PLATELET COUNT 169 x10e3/uL (140-360); RED BLOOD COUNT 4.37 x10e6/uL (3.6-5.1); RED CELL DISTRIBUTION WIDTH 14.2 % (11.7-14.4)
[2019-05-06 13:47] LABS: INR 0.82; PARTIAL THROMBOPLASTIN TIME 27.4 seconds (23.8-35.5); PROTHROMBIN TIME 11.8 seconds (11.9-14.5)
[2019-05-06 13:55] LABS: ANION GAP 14.3 mmol/L (8-16); CALCIUM 9.6 mg/dL (8.4-10.2); CREATININE, SERUM 0.94 mg/dL (0.57-1.11); POTASSIUM 4.3 mmol/L (3.5-5.1)
[~2019-05-08] MED LIST changes: +ACETAMINOPHEN 1000 MG/100 ML 100 ML IV ONE; +ACETAMINOPHEN-1 EAC4 PO; +B&O 60MG R/S 60 MG SUPP PR ONE; +CEFTRIAXONE SOD 1 GM/NS 50 ML 50 ML IV ONE; +FENTANYL CITRATE/PF 100MCG/2 ML INJ ONE; -FLONASE; +FLONASE NS; +GENTAMICIN 80MG/NS 100 ML 100 ML IV ONE; -GENTAMICIN 80MG/NS 100 ML 200 ML IV ONE; +METOCLOPRAMIDE HCL 10 MG/2ML VIAL ONE; -ONDANSETRON HCL INJ 2 MG/ML VIAL ONE; +ONDANSETRON HCL INJ 2MG/ML 2ML 2 MG/ML VIAL ONE; +PHENYLEPHRINE HCL 1% 10 MG/ML VIAL ONE; -ROCURONIUM BROMIDE 10 MG/ML 5ML VIAL ONE
--- OUTSIDE RECORDS SUMMARY | 2019-05-08 10:15 | XMS REPORT | Continuity of Care Document ---
Author Author [employer] Address Unknown Phone Unavailable Care Team Providers Care Butting Saw Operator Name Role Phone [employer] Information [employer] Unavailable Unavailable Problems Problem Status Onset Date Classification Date Reported Comments Source LT SHOULDER Active 01/23/2019 [facility] LT SHOULDER PAIN Active 12/02/2018 [facility] Incomplete rotator cuff tear or rupture of left shoulder, not specified as traumatic 07/23/2018 02/03/2019 [facility] Unspecified abdominal pain 12/21/2017 03/24/2018 [facility] Encounter for screening mammogram for malignant neoplasm of breast 11/15/2017 02/19/2018 [facility] Postlaminectomy syndrome, not elsewhere classified 11/07/2017 02/08/2018 [facility] CERVICAL PAIN Active 03/21/2017 [facility] S/P RT SHOULDER RTC REPAIR Active 09/06/2016 [facility] S/P REVERSE RTC REPAIR Active 09/06/2016 [facility] 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 Active 08/09/2016 [facility] M79.645 - PAIN IN LEFT FINGER(S) Active 07/11/2015 [facility] 174.3 BREAST CANCER Active 05/04/2015 [facility] 174.3 Active 05/04/2015 [facility] BREAST MASS Active 08/18/2014 [facility] 793.80 Active 08/10/2014 [facility] Discharge Diagnosis: Fall 06/20/2014 06/22/2014 [facility] Discharge Diagnosis: Neck pain 06/20/2014 06/22/2014 [facility] FALL Active 06/20/2014 [facility] HTN (Confirmed) Resolved Problem 07/15/2015 [facility], [facility] [place],[facility] Chest pain Active Problem 04/26/2019 [facility], [facility] [place],[facility] HLD - Hyperlipidemia Active Problem 04/26/2019 [facility], [facility] [place],[facility] HTN (Confirmed) Resolved Problem 04/26/2019 [facility] HTN - Hypertension Active Problem 04/26/2019 [facility], [facility] [place],[facility] Hypercholesterolemia Resolved Problem 04/26/2019 [facility], [facility] [place],[facility] Implant1 Active Problem 10/06/2017 Kidney and bladder device that is implanted in the Left hip [facility], [facility] [place],[facility] Cervicalgia 02/08/2018 [facility] Weakness 02/08/2018 [facility] Radiculopathy, cervical region 02/08/2018 [facility] Calculus of kidney 02/03/2019 [facility] [place] Other specified disorders of kidney and ureter 03/24/2018 [facility] [place] Cyst of kidney, acquired 02/03/2019 [facility] [place] Primary osteoarthritis, left shoulder 02/03/2019 [facility] [place] Other sprain of left shoulder joint, initial encounter 02/03/2019 [facility] [place] Calculus in bladder 02/03/2019 [facility] [place] Fatty liver, not elsewhere classified 02/03/2019 [facility] [place] Diverticulosis of intestine, part unspecified, without perforation or abscess without bleeding 02/03/2019 [facility] [place] MAL NAVARRO BREAST LOW-INNER Active [facility] MALIG NEOPLASM OF LOWER-INNER QUADRANT O Active [facility] OT ABN AND INCONCLUSIVE FINDINGS ON DX Active [facility] Medications Medication Details Route Status Patient Instructions Ordering Provider Order Date Source Cyclobenzaprine hydrochloride 10 MG Oral Tablet [Flexeril] 10 mg=1 tab, PO, TID, for spasm, # 30 tab, 0 Refill(s) Active 06/21/2014 [facility] Flexeril 10 mg, Route: PO, ONCE, Dosing Weight 81.818, kg, Priority: STAT, Start date: 06/20/14 19:43:00, Stop date: 06/20/14 19:43:00 Inactive 06/21/2014 [facility] Allergies, Adverse Reactions, Alerts Substance Category Reaction Severity Reaction type Status Date Reported Comments Source cipro Assertion Drug allergy Active [facility] Tape Assertion Propensity to adverse reactions to substance Active [facility] Immunizations Immunization Date Given Site Status Last Updated Comments Source pneumococcal 23-valent vaccine 02/03/2011 Left deltoid completed Cm [facility] [place],[facility] Results No Data Provided for This Section Pathology Reports No Data Provided for This Section Diagnostic Reports Report Value Date Source Abdomen/Pelvis wo IV contrast CT Clinical Indication: [...] cyst 6. Hepatic steatosis 7. Diverticulosis SL: [id number] 07/17/2018 [facility] [place] Shoulder wo contrast MRI MR LEFT SHOULDER [...] labrum. Thank you referring your patient to [facility] and [facility]. SL: [id number] 07/17/2018 [facility] [place] Knee 3 views DX Study: Left knee, [...] compartment osteoarthrosis of the left knee. SL: [id number] 02/20/2018 [facility] Shoulder series DX Study: Left shoulder, 3 [...] unremarkable. IMPRESSION: Severe glenohumeral joint osteoarthrosis. SL: [id number] 02/20/2018 [facility] Retroperitoneal Complete US EXAM: US RETROPERITONEAL HISTORY: [...] cysts. 3. Nonobstructing right intrarenal stone. SL: [id number] 12/16/2017 [facility] Breast Mammo Scrn [place] incl CAD CT BILATERAL DIGITAL SCREENING MAMMOGRAM WITH CAD: 11/13/2017 CLINICAL: /Routine. Current study was evaluated with a Computer Aided Detection (CAD) system. COMPARISON:Comparison is made to exams dated: 08/20/2016 mammogram, 05/09/2015 mammogram, 08/18/2014 mammogram - [facility], and 07/23/2014 mammogram - [facility]. TECHNIQUE: Mammographic views were obtained using [...] is recommended.(11/14/2018) This exam was interpreted at [id number] for [place], 15. Professional services are provided by the [facility]. Ashkan Bruce M.D., cm/marina:11/13/2017 11:54:37 Fish Cutting Machine Operator(s): Jenna Day RT(R)(M), [facility] letter sent: BI-RADS 1/2 Mammogram BI-RADS: 2 Benign 11/13/2017 [facility] Ankle 3 views DX REASON FOR EXAM: [...] of the left ankle. SL: 16 10/29/2017 [facility] Spine cervical 2 or 3 view DX [...] spine as described above. SL: 16 05/22/2017 [facility] Digital Mammo DX [place] MA - DIGITAL MAMMO DX [place] BILATERAL DIGITAL DIAGNOSTIC MAMMOGRAM WITH CAD: 08/20/2016 CLINICAL: Fibrocystic Disease right IDC s/p lumpectomy and XRT. Current study was evaluated with a Computer Aided Detection (CAD) system. Comparison is made to exams dated: 05/09/2015 mammogram, 08/18/2014 mammogram - [facility], 07/23/2014 mammogram - [facility], 06/04/2012 mammogram, 05/31/2010 mammogram and 02/16/2008 mammogram - [facility]. There are scattered fibroglandular densities in both [...] results were reviewed with the patient. Josefina Reno M.D. jt/:08/20/2016 13:50:21 Fish Cutting Machine Operator: Radha Sotelo, [facility] This exam was dictated and interpreted by [id number] for [facility]. letter sent: Normal exam Mammogram BI-RADS: 2 Benign 08/20/2016 [facility] Ankle 2 views DX Study: Right ankle, 3 views Clinical Indication: M79.671, M25.571 / RT. FOOT AND ANKLE PAIN Comparison: None FINDINGS: Multiple views of the right ankle show no acute bony fracture or joint dislocation. Ankle mortise is congruent. Soft tissues are unremarkable. IMPRESSION: No acute bony abnormality of the right ankle. SL: [id number] 04/17/2016 [facility] Foot 2 views DX Study: Right foot, [...] 2. Mild to moderate midfoot osteoarthrosis. SL: [id number] 04/17/2016 [facility] [place] Shoulder wo contrast MRI EXAM: MRI of [...] osteoarthrosis with incidentally noted os acromiale. SL: [id number] 02/01/2016 [facility] [place] Shoulder series DX Patient Name: MARÍA HOLDER : 1940; Age: 75 years Female MR: [id number] Study: Shoulder series DX 01/05/2016 2:02 PM [...] cervical fusion. 4. No acute process. SL: [id number] 01/05/2016 [facility] Spine cervical series DX Study: Cervical spine, [...] degenerative changes throughout the cervical spine. SL: [id number] 01/05/2016 [facility] Shoulder series DX Study: Right shoulder, 2 [...] seen. IMPRESSION: Moderate-severe glenohumeral joint osteoarthrosis. SL: [id number] 12/16/2015 [facility] Finger 3 views DX LEFT FINGER RADIOGRAPH 3 VIEW INDICATION: Left thumb pain COMPARISON: Left hand radiograph 07/12/2015 IMPRESSION: No acute bony abnormalities are visualized. There is no significant interval change in mild arthrosis of the first CMC and MCP joints, characterized by joint space narrowing and mild osteophytosis. SL: 16 10/19/2015 [facility] Hand 3 views DX Examination: Left hand, [...] the thumb CMC joint. SL: 16 07/12/2015 [facility] [place] Breast Complete [facility] US - BREAST COMPLETE [place] US ULTRASOUND OF BOTH BREASTS AND BOTH AXILLA: 05/09/2015 CLINICAL: Pain h/o right breast CA s/p lumpectomy and XRT. Comparison is made to exams dated: 05/09/2015 mammogram, 08/23/2014 ultrasound biopsy, 08/18/2014 ultrasound, 08/18/2014 mammogram - [facility], 07/23/2014 mammogram - [facility] and 06/04/2012 mammogram - Breast Diagnostic [...] the patient's history of prior lumpectomy. Josefina rileyt/:05/09/2015 15:09:03 Fish Cutting Machine Operator: Andrew Rey, [facility] This exam was dictated and interpreted by [id number] for [facility]. letter sent: Normal exam Ultrasound BI-RADS: 2 Benign 05/09/2015 [facility] Digital Mammo DX [place] - DIGITAL MAMMO DX [place] BILATERAL DIGITAL DIAGNOSTIC MAMMOGRAM WITH CAD: 05/09/2015 CLINICAL: Breast Cancer right IDC s/p lumpectomy and XRT. Current study was evaluated with a Computer Aided Detection (CAD) system. Comparison is made to exams dated: 08/18/2014 mammogram - [facility], 07/23/2014 mammogram - [facility], 06/04/2012 mammogram, 05/31/2010 mammogram and 02/16/2008 mammogram - [facility] [place]. There are scattered fibroglandular densities in both [...] separate report. Josefina Reno M.D. jt/:05/09/2015 15:00:07 Fish Cutting Machine Operator: Lily Mckinley, [facility] This exam was dictated and interpreted by [id number] for [facility]. Mammogram BI-RADS: 0 Indeterminate 05/09/2015 [facility] Retroperitoneal limited US RETROPERITIONEAL ULTRASOUND History- renal [...] prior CT scans, probable stable calculi. SL: Paulo Pinto M.D. [facility] [place] [facility] RIGHT SHOULDER (2 views) [...] right axilla. Coding: Shoulder series CPT Code: 87002 SL: 12 Alexis Pinto M.D. 09/29/2014 [facility] Spine lumbar 2 or 3 views DX [...] coccyx, correlate with patient's stent device. [facility]16[facility] [place] Sp[facility] sacrum AP/Lat DX HISTORY: Cystitis TECHNIQUE: Two views of the sacrum and coccyx COMPARISON: None FINDINGS: No acute osseous abnormalities. Partial visualization of cervical hardware in L4-S1. Curvilinear radiopaque density is seen projecting at S3, correlate with the patient's previously inserted stent device. IMPRESSION: Curvilinear radiopaque density seen projecting at S3, correlate with positioning of patient's known stent. 09/16/2014 [facility] [place] Breast biopsy uni US Guided w clip [...] exams dated: 08/18/2014 ultrasound, 08/18/2014 mammogram - [facility], 07/23/2014 mammogram - [facility], 06/04/2012 mammogram, 05/31/2010 mammogram and 02/16/2008 [...] cores were obtained using the vacuum assisted [employer]ix EnCor Enspire device. A Gel Brady UltraCor [...] procedure complications. Pathology indicates malignant results - 'INVASIVE DUCTAL CARCINOMA, NUCLEAR GRADE 1-2. - Negative for lymphovascular invasion. - Immunostains: SMM and p63 show absence of myoepithelial layer; Estrogen receptor positive, progesterone receptor positive, HER2 negative'. Pathology results are concordant with imaging findings. A surgical consult, a surgical excision and a chemo oncology consultation are recommended. A phone call was made to the physician at 1355 hrs 08/25/14. Josefina perez/:08/26/2014 14:42:00 Fish Cutting Machine Operator: Andrew Rey, [facility] This exam was dictated and interpreted by [id number] for [facility] [place]. 08/23/2014 [facility] Breast US - BREAST US/R ULTRASOUND OF RIGHT BREAST AND RIGHT AXILLA: 08/18/2014 CLINICAL: Mass. Comparison is made to exams dated: 08/18/2014 mammogram - [facility], 07/23/2014 mammogram - [facility], 06/04/2012 mammogram, 05/31/2010 mammogram and 02/16/2008 mammogram - Breast [facility]. Color flow and real-time ultrasound of the [...] scheduled her procedure prior to leaving the [facility]. Critical findings were called to the physician's nurse Court at 0856 hours on the day of the exam. Josefina perez/marina:08/18/2014 08:56:15 Fish Cutting Machine Operator: Andrew Rey, [facility] This exam was dictated and interpreted by [id number] for [facility]. letter sent: Biopsy Ultrasound BI-RADS: 5 Highly suggestive of malignancy 08/18/2014 [facility] Digital Mammo DX Uni MA - DIGITAL MAMMO DX UNI MA/R UNILATERAL RIGHT DIGITAL DIAGNOSTIC MAMMOGRAM WITH CAD: 08/18/2014 CLINICAL: Mammographic Abnormality. Current study was evaluated with a Computer Aided Detection (CAD) system. Comparison is made to exams dated: 07/23/2014 mammogram - [facility], 06/04/2012 mammogram and 05/31/2010 mammogram - [facility]. There are scattered fibroglandular densities in the [...] time; please see dedicated separate report. Josefina rileyt/penrad:08/18/2014 08:49:39 Fish Cutting Machine Operator: Radha Sotelo, [facility] This exam was dictated and interpreted by [id number] for [facility]. Mammogram BI-RADS: 0 Indeterminate 08/18/2014 [facility] Digital Mammo Screening [place] - DIGITAL [...] an ultrasound are recommended. Josefina perez/penrad:08/05/2014 15:10:05 Fish Cutting Machine Operator: Paula DUMONT)(Jimmie), [facility] This exam was dictated and interpreted by [id number] for [facility]. letter sent: Additional Imaging Mammogram BI-RADS: 0 Indeterminate 07/23/2014 [facility] Spine cervical series DX EXAM: Cervical spine. HISTORY: Neck trauma COMPARISON: 03/25/2007. TECHNIQUE: 6 views of the cervical spine FINDINGS: Straightening of the cervical spine may be due to cervical collar or muscle spasm. Otherwise, normal alignment of the cervical spine without acute traumatic injury seen. Anterior fusion C5-C7. Neuroforaminal stenosis on the right at C5-C6. SL: 14 06/20/2014 [facility] Consultation Notes No Data Provided for This Section Discharge Summaries No Data Provided for This Section History and Physicals No Data Provided for This Section Vital Signs Vital Sign Value Date Comments Source Respitory Rate 18 06/21/2014 [facility] Heart Rate 86 06/21/2014 [facility] Temperature Oral (F) 98.0 F 06/21/2014 [facility] Diastolic (mm Hg) 79 06/21/2014 [facility] Systolic (mm Hg) 138 06/21/2014 [facility] Height 160.02 cm 06/20/2014 [facility] Weight 81.818 06/20/2014 [facility] BMI Calculated 31.95 06/20/2014 [facility] Systolic (mm Hg) 158 06/20/2014 [facility] Temperature Oral (F) 98.2 F 06/20/2014 [facility] Respitory Rate 20 06/20/2014 [facility] Heart Rate 87 06/20/2014 [facility] Diastolic (mm Hg) 81 06/20/2014 [facility] Encounters Location Location Details Encounter Type Encounter Number Reason For Visit Attending Provider ADM Date DC Date Status Source [facility] [id number] Moncho Lu 06/20/2014 06/21/2014 [facility] [place] [facility] [id number] Amadou Gregory 07/23/2014 [facility] [id number] Amadou Gregory 08/18/2014 08/19/2014 [facility] Outpatient [id number] Amadou Gregory 08/23/2014 08/24/2014 [facility] - [place] [facility] [id number] Soham Woods 09/16/2014 09/17/2014 [facility] [place] [facility] [place] [facility] [id number] Amadou Gregory 09/29/2014 09/30/2014 [facility] Outpatient [id number] Amadou Gregory 05/09/2015 05/10/2015 [facility] [place] [facility] [id number] Amadou Gregory 07/12/2015 07/13/2015 [facility] [place] [facility] [place] [facility] [id number] Amadou Gregory 10/19/2015 10/20/2015 [facility] [place] [facility] [place] [facility] [id number] Amadou Gregory 12/16/2015 12/17/2015 [facility] [place] [facility] [place] [facility] [id number] Alvarado Angeles 01/05/2016 01/06/2016 [facility] [place] [facility] [place] [facility] [id number] [place]varado [place] 02/01/2016 02/02/2016 [facility] [place] [facility] [place] [facility] [id number] Amadou Gregory 04/17/2016 04/18/2016 [facility] [place] [facility] [id number] Amadou Gregory 08/20/2016 08/21/2016 [facility] Patients [id number] [facility] 12/17/2016 01/16/2017 [facility] [id number] [facility] 01/16/2017 02/15/2017 [facility] [id number] [facility] 02/26/2017 03/28/2017 [facility] [place] [facility] [id number] Amadou Gregory 05/22/2017 05/23/2017 [facility] [place] [facility] [id number] Ramona Regalado 09/04/2017 10/04/2017 [facility] [id number] Ramona Regalado 10/04/2017 11/03/2017 [facility] [place] [facility] [id number] Amadou Gregory 11/13/2017 11/14/2017 [facility] [place] [facility] [place] [facility] [id number] Amadou Gregory 12/16/2017 12/17/2017 [facility] [place] [facility] [place] [facility] [id number] Amadou Gregory 02/20/2018 02/21/2018 [facility] [place] [facility] [place] [facility] [id number] 07/17/2018 07/18/2018 [facility] [place] [facility] [id number] [facility] 02/09/2019 03/11/2019 [facility] [id number] Aston Rodgers 03/26/2019 04/25/2019 [facility] Procedures Procedure Code Date Perfomer Comments Source Abdominal hysterectomy [id number] [facility] Appendectomy [id number] [facility] Cataract surgery<sup>1</sup> [id number] bilat [facility] Cholecystectomy [id number] [facility] Kidney biopsy<sup>2</sup> 7686231 removal of kidney stones [facility] Replacement of electronic stimulator into bladder<sup>3</sup> 29003576 Placed in left hip [facility] Suspension of bladder<sup>4</sup> 7329435 x3 [facility] Tonsillectomy [id number] [facility] Abdominal hysterectomy [id number] [facility] [place] Appendectomy [id number] [facility] [place] Cataract surgery<sup>1</sup> [id number] bilat [facility] [place] Cholecystectomy [id number] [facility] [place] Kidney biopsy<sup>2</sup> 1944937 removal of kidney stones [facility] [place] Replacement of electronic stimulator into bladder<sup>3</sup> 35714595 Placed in left hip [facility] [place] Suspension of bladder<sup>4</sup> 0210380 x3 [facility] [place] Tonsillectomy [id number] [facility] [place] Abdominal hysterectomy [id number] [facility] Appendectomy [id number] [facility] Cataract surgery<sup>1</sup> [id number] bilat [facility] Cholecystectomy [id number] [facility] Kidney biopsy<sup>2</sup> 4595716 removal of kidney stones [facility] Replacement of electronic stimulator into bladder<sup>3</sup> 95604284 Placed in left hip [facility] Suspension of bladder<sup>4</sup> 0633542 x3 [facility] Tonsillectomy [id number] [facility] Assessment and Plan No Data Provided for This Section Plan of Care No Data Provided for This Section Social History Social History Date Source No data available for this section 04/25/2019 [facility] No data available for this section 07/18/2018 [facility] [place] No data available for this section 08/21/2016 [facility] Family History No Data Provided for This Section Advance Directives No Data Provided for This Section Functional Status No Data Provided for This Section
--- OUTSIDE RECORDS SUMMARY | 2019-05-08 10:15 | XMS REPORT | Summary of Care ---
Author Author [facility] Outpatient Imaging [facility]patient [facility] [place] Address Unknown Phone Unavailable Encounter HQ Armando(FIN) [id number] Date(s): 07/17/18 - 07/17/18 [facility] Outpatient Imaging [place] [address] [facility] [address] [place], [place] [address]- [phone] Encounter Diagnosis Incomplete rotator cuff tear or rupture of left shoulder, not specified as traum atic (Final) - 07/22/18 Primary osteoarthritis, left shoulder (Final) - Other sprain of left shoulder joint, initial encounter (Final) - Calculus of kidney (Final) - Calculus in bladder (Final) - Cyst of kidney, acquired (Final) - Fatty (change of) liver, not elsewhere classified (Final) - Diverticulosis of intestine, part unspecified, without perforation or abscess wi thout bleeding (Final) - Discharge Disposition: Home or Self Care Attending Physician: sAton Rodgers MD Referring Physician: Soham Woods MD Vital Signs No data available for [...]
--- OUTSIDE RECORDS SUMMARY | 2019-05-08 10:15 | XMS REPORT | Summary of Care ---
Author Author [facility] Organization [facility] Address Unknown Phone Unavailable Encounter HQ Encntr_leticia(FIN) [id number] Date(s): 02/09/19 - 03/10/19 [facility] Discharge Disposition: Home or Self Care [...]
--- OUTSIDE RECORDS SUMMARY | 2019-05-08 10:16 | XMS REPORT | Summary of Care ---
Author [facility] Organization [facility] Address Unknown Phone Unavailable Encounter HQ Carmenntr_leticia(FIN) [id number] Date(s): 03/26/19 - 04/24/19 [facility] Discharge Disposition: Home or Self Care [...]
--- OUTSIDE RECORDS SUMMARY | 2019-05-08 10:16 | XMS REPORT ---
Author Author [facility] Address Unknown Phone Unavailable Care Team Providers Care Conference Translator Name Role Phone ALEXANDRA MANUEL Unavailable Unavailable Payers Payer Name Policy Type Policy Number Effective Date Expiration Date Problems This patient has no known problems. Allergies, Adverse Reactions, Alerts Allergy Name Allergy Type Status Severity Reaction(s) Onset Date Inactive Date Treating Clinician Comments ciprofloxacin DA Active SV 2018-10-31 00:00:00 pregabalin DA Active MO 2018-10-31 00:00:00 ciprofloxacin DA Active SV 2018-08-29 00:00:00 pregabalin DA Active U 2018-08-29 00:00:00 TAPE DA Active MO 2018-08-29 00:00:00 ciprofloxacin DA Active U 2018-08-19 00:00:00 ciprofloxacin DA Active SV 2018-08-02 00:00:00 ciprofloxacin DA Active U 2006-09-27 00:00:00 Medications This patient has no known medications. Results Test Description Test Time Test Comments Text Results Atomic Results Result Comments CHEST 2 VIEWS 2019-05-06 13:00:00 [place] [address] Patient Name: MARÍA HOLDER MR #: [id number] : 1940 Age/Sex: 78/F Req #: [id number] Adm Physician: Ordered by: ALEXANDRA MANUEL MD Report #: [id number] Location: OR Room/Bed: Procedure: [id number] DX/CHEST 2 VIEWS Exam Date: Exam Time: REPORT STATUS: Signed EXAMINATION: CHEST 2 VIEWS INDICATION: Pre-operative COMPARISON: Chest radiograph of 07/15/2018 FINDINGS: LINES/TUBES:None LUNGS:The lungs are well-inflated. No focal consolidation or pulmonary edema. Scattered bibasilar calcified granulomas. PLEURA:No pleural effusion or pneumothorax. MEDIASTINUM:The cardiomediastinal silhouette appears normal in size and shape. Atherosclerotic calcifications of the thoracic aorta. BONES/SOFT TISSUES:No acute osseous injury. Mild degenerative changes of the thoracic spine. Postoperative changes of hemiarthroplasty of both shoulders. Anterior cervical spine fusion hardware present. ABDOMEN:No free air under the diaphragm. Status post cholecystectomy. IMPRESSION: No focal pneumonia or pulmonary edema. Signed by: Leydi James MD on 05/06/2019 1:03 PM Dictated By: LEYDI JAMES MD 1303 Transcribed By: JACK on 05/06/19 1303 COPY TO: ALEXANDRA MANUEL MD BASIC METABOLIC PANEL 2018-12-02 07:03:00 SODIUM (test code=NA) 143 mEq/L 134-147 POTASSIUM (test code=K) 4.0 mEq/L 3.4-5.0 CHLORIDE (test code=CL) 110 mEq/L 100-108 CARBON DIOXIDE (test code=CO2) 30 mEq/L 21-33 ANION GAP (test code=GAP) 7 0-20 GLUCOSE (test code=GLU) 92 mg/dL 70-110 BLOOD UREA NITROGEN (test code=BUN) 23 mg/dL 7-18 GLOMERULAR FILTRATION RATE (test code=GFR) 60.9 70-80 Units of measure=ml/min/1.73 m2 CREATININE (test code=CREAT) 0.9 mg/dL 0.6-1.3 CALCIUM (test code=CA) 8.7 mg/dL 8.0-10.5 URINALYSIS [id number] 17:15:00* Test Item Value Reference Range Comments UA COLOR (test code=COLU) YELLOW YEL/STRAW UA APPEARANCE (test code=APPU) CLEAR CLEAR UA GLUCOSE DIPSTICK (test code=DGLUU) NEGATIVE NEGATIVE UA BILIRUBIN DIPSTICK (test code=BILU) NEGATIVE NEGATIVE UA KETONE DIPSTICK (test code=KETU) TRACE NEGATIVE UA SPECIFIC GRAVITY (test code=SGU) 1.004 1.005-1.030 UA BLOOD DIPSTICK (test code=JENNIFER) NEGATIVE NEGATIVE UA PH DIPSTICK (test code=ANN) 6.0 5.0-7.0 UA PROTEIN DIPSTICK (test code=PROU) NEGATIVE NEGATIVE UA UROBILINIOGEN DIPSTICK (test code=URO) 0.2 mg/dL 0.2-1.0 UA NITRITE DIPSTICK (test code=KAITLIN) NEGATIVE NEGATIVE UA LEUKOCYTE ESTERASE DIPSTICK (test code=LEUU) NEGATIVE NEGATIVE UA WBC (test code=WBCU) 0-3 WBC/HPF 0-3 UA RBC (test code=RBCU) 0-3 RBC/HPF 0-3 UA BACTERIA (test code=BACU) NONE SEEN /HPF NONE SEEN UA SQUAMOUS CELLS (test code=SQU) 0-5 /HPF NONE SEEN CBC W/AUTO [id number] 15:51:00* Test Item Value Reference Range Comments WHITE BLOOD CELL (test code=WBC) 6.47 x10 3/uL 4.5-11.0 RED BLOOD CELL (test code=RBC) 4.18 x10 6/uL 3.54-5.02 HEMOGLOBIN (test code=HGB) 12.4 g/dL 11.0-15.0 HEMATOCRIT (test code=HCT) 40.8 % 33.0-45.0 MEAN CELL VOLUME (test code=MCV) 97.6 fL 81.0-99.0 MEAN CELL HGB (test code=MCH) 29.7 pg 27.0-33.0 MEAN CELL HGB CONCETRATION (test code=MCHC) 30.4 g/dL 33.0-37.0 RED CELL DISTRIBUTION WIDTH CV (test code=RDW) 13.4 % 11.5-14.5 RED CELL DISTRIBUTION WIDTH SD (test code=RDW-SD) 47.5 fL 37.0-54.0 PLATELET COUNT (test code=PLT) 172 x10 3/uL 150-400 MEAN PLATELET VOLUME (test code=MPV) 11.0 fL 7.0-9.0 NEUTROPHIL % (test code=NT%) 58.6 % 56.0-77.0 IMMATURE GRANULOCYTE % (test code=IG%) 0.3 % 0.0-2.0 LYMPHOCYTE % (test code=LY%) 28.3 % 14.0-32.0 MONOCYTE % (test code=MO%) 9.1 % 4.8-9.0 EOSINOPHIL % (test code=EO%) 2.6 % 0.3-3.7 BASOPHIL % (test code=BA%) 1.1 % 0.0-2.0 NUCLEATED RBC % (test code=NRBC%) 0.0 % 0-0 NEUTROPHIL # (test code=NT#) 3.79 x10 3/uL 2.0-7.6 IMMATURE GRANULOCYTE # (test code=IG#) 0.02 x10 3/uL 0.00-0.03 LYMPHOCYTE # (test code=LY#) 1.83 x10 3/uL 1.0-3.8 MONOCYTE # (test code=MO#) 0.59 x10 3/uL 0.1-0.8 EOSINOPHIL # (test code=EO#) 0.17 x10 3/uL 0.0-0.2 BASOPHIL # (test code=BA#) 0.07 x10 3/uL 0.0-0.2 NUCLEATED RBC # (test code=NRBC#) 0.00 x10 3/uL 0.0-0.1 MANUAL DIFF REQUIRED (test code=MDIFF) NO BASIC METABOLIC [id number] 15:50:00* Test Item Value Reference Range Comments SODIUM (test code=NA) 134 mEq/L 134-147 POTASSIUM (test code=K) 3.6 mEq/L 3.4-5.0 CHLORIDE (test code=CL) 100 mEq/L 100-108 CARBON DIOXIDE (test code=CO2) 28 mEq/L 21-33 ANION GAP (test code=GAP) 10 0-20 GLUCOSE (test code=GLU) 92 mg/dL 70-110 BLOOD UREA NITROGEN (test code=BUN) 27 mg/dL 7-18 GLOMERULAR FILTRATION RATE (test code=GFR) 43.7 70-80 Units of measure=ml/min/1.73 m2 CREATININE (test code=CREAT) 1.2 mg/dL 0.6-1.3 CALCIUM (test code=CA) 8.6 mg/dL 8.0-10.5 - XR CHEST 2 [id number] 14:48:00 FAX: Aston Waters MD [phone] [place]: St: PRE FAX: Marina Ocampo N Name: MARÍA HOLDER [facility] : 1940 Age/S: 78/F [address] [place] [address] Unit #: [id number] Loc: [place] [address] Phys: Aston Rodgers MD Acct: [id number] Dis Date: Status: PRE SDC PHONE #: [phone] Exam Date: 10/31/2018 1417 FAX #: [phone] Reason: LEFT SHOULDER PRIMARY OSTEOARTHRITIS EXAMS: CPT CODE: [id number] XR CHEST 2 V 66844 CLINICAL HISTORY: Left shoulder primary osteoarthritis. COMPARISON: August 29, 2018.. PA and lateral films of the chest demonstrate that heart size is normal. Lung ivory are clear. No evidence of pneumonia or congestive failure is seen. Postsurgical changes in right shoulder are present. Surgical clip in the right axilla are also noted. There is also evidence of previous fusion surgery in cervical spine. IMPRESSION: No evidence of pneumonia or congest lynn failure. at 3190 Reported and signed by: Juan Estrella M.D. CC: Aston Rodgers MD; Marina Ocampo FURNACE CHARGER Technologist: Irma Srivastava, RT(R), RTT Trnscrd Rodney e/Time/By: 10/31/2018 (0044) : By: Josef Orig Print D/T: S: 2018 (1814) PAGE 1 Signed Report CHEST 2 [id number] 16:13:00 [place] [address] Patient Name: MARÍA HOLDER MR #: [id number] : 1940 Age/Sex: 78/F Req #: [id number] Adm Physician: Ordered by: ALEXANDRA MANUEL MD Report #: [id number] Location: OR Room/Bed: Procedure: [id number] DX/CHEST 2 VIEWS Exam Date: Exam Time: REPORT STATUS: Signed EXAMINATION: CH EST 2 VIEWS INDICATION: COMPARISON: None FI NDINGS: PA and lateral views TUBES and LINES: None. LUNGS: Lungs ar e well inflated. Lungs are clear. There is no evidence of pneumonia or pulm onary edema. PLEURA: No pleural effusion or pneumothorax. HEART AND M EDIASTINUM: The cardiomediastinal silhouette is unremarkable. Mild atheroscle rotic calcifications of the aortic arch. BONES AND SOFT TISSUES: Cervical spine fusion. Metallic hardware overlying the right humeral head. Mild degener ative changes of the thoracic spine. Surgical clips overlying the upper abdom en on lateral view. UPPER ABDOMEN: No free air under the diaphragm. I MPRESSION: No acute thoracic abnormality. Signed by: Dr. Mercedes Rehman M.D. on 07/15/2018 4:15 PM Dictated By: MERCEDES WILKINSON MD 4815 Tr anscribed By: JACK on 07/15/18 2247 COPY TO: ALEXANDRA MANUEL MD
[2019-05-08 13:00] VITALS: BP 120/54
--- NOTE | 2019-07-03 05:34 | Operative Report ---
DATE OF PROCEDURE: 05/08/2019 SURGEON: Soham Woods MD PREOPERATIVE DIAGNOSES: 1. Urinary tract infections. 2. Refractory urge incontinence. POSTOPERATIVE DIAGNOSES: 1. Urinary tract infections. 2. Refractory urge incontinence. 3. Left hydronephrosis. 4. Grade 2 cystocele. 5. Grade 1 rectocele. 6. Atrophic (senile) vaginitis. OPERATIONS PERFORMED: 1. Cystourethroscopy with bilateral ureteral catheterization and retrograde ureteropyelography (separately performed for the urinary tract infections). 2. Interpretation of retrograde ureteropyelography. 3. Supervision of fluoroscopy, no radiologist present. 4. Right ureteroscopy (separately performed for the hydronephrosis). 5. Radiological services with supervision and interpretation of ureteroscopy. 6. Cystourethroscopy with intravesical injection of Botox (separate procedure performed for the refractory urge incontinence). 7. Pelvic examination under anesthesia. ANESTHESIA: General. COMPLICATIONS: None. CLINICAL SUMMARY: Brittni Rai is a 78-year-old woman with a complicated urological history. She has a history of right nephrolithotomy in the past. She has chronic right-sided hydronephrosis. She has a history of InterStim placement for her refractory urge incontinence in the past. The patient is brought to the operating room for the above procedure. She is aware of the risks of bleeding, infection, injury to adjacent structures, need for additional procedures, and elected to proceed. OPERATIVE PROCEDURE IN DETAIL: Informed consent was verified. Brittni Rai was properly identified, taken to the operating room, placed on the cystoscopy table in supine position. Anesthesia was uneventfully begun. The patient was then carefully and gently repositioned in dorsal lithotomy position with all pressure points were well padded. Her genitalia were prepared and draped in usual sterile fashion. The cystoscope sheath with an obturator in place was atraumatically inserted into the patient's urethra and bladder was drained. Panendoscopy of the urinary bladder revealed no suspicious mucosal lesions, no tumors, no stones, and no diverticula. Normally positioned and configured ureteral orifices were identified. A ureteral catheter was used to cannulate each ureter and retrograde ureteropyelograms were performed. A guide was then placed into the right ureter and guided to the level of the patient's kidney. The flexible ureteroscope was then brought up over the guidewire and brought up to the level of the patient's kidney. Panendoscopy revealed intrarenal collecting system revealed no suspicious mucosal lesions, no tumors, no stones, and no diverticula. We carefully examined the ureter as we exited. There was significant tortuosity of the ureter with this ureter did not contain any filling defect nor any suspicious lesions. Interpretation of retrograde ureteropyelography contrast was instilled in retrograde fashion bilaterally. The left side was relatively unremarkable. There were no tumors. There were no stones. There were no diverticula. Unobstructed drainage was observed. The right hand side exhibited chronic-appearing hydronephrosis with tortuosity of the proximal portion of the ureter. Unobstructed drainage was observed fluoroscopically, although this may be somewhat retarded. There was a hardware noted fixating the patient's spine as well as the contacts from the patient's previous InterStim, which was removed. Botox was reconstituted and dissolved and sterile saline was then injected 1 mL aliquots in an even distribution throughout the supratrigonal bladder. The patient's bladder was drained and cystoscope was withdrawn. Pelvic examination under anesthesia revealed grade 2 cystocele, grade 1 cystocele. There was atrophic (senile) vaginitis. No abnormal palpable pelvic masses could be appreciated. There were no obvious mucosal lesions. The patient did have a very foreshortened vagina and may have some degree of vaginal cuff prolapse, possibly a grade 2. The patient was then uneventfully reversed from anesthesia and taken to recovery room in stable condition. There were no complications to the procedure. She tolerated the procedure well. Explicit postop instructions were given. We will follow the patient up in the office. Specimen obtained from the case were a culture and sensitivity, aspirated directly from the right renal pelvis. Soham MD Peggy [place]/MODL /[id number]
== END | disposition home or self-care (01) ==
LOC: OR 09:54
PROVIDERS: ATTEND Urology
DX: N39.41 Urge incontinence (principal); N39.0 Urinary tract infection, site not specified; N13.30 Unspecified hydronephrosis; N81.10 Cystocele, unspecified; N81.6 Rectocele; N95.2 Postmenopausal atrophic vaginitis; I12.9 Hypertensive chronic kidney disease with stage 1 through stage 4 chronic kidney disease, or unspecified chronic kidney disease; N18.9 Chronic kidney disease, unspecified; M19.90 Unspecified osteoarthritis, unspecified site; F32.9 Major depressive disorder, single episode, unspecified; Z88.1 Allergy status to other antibiotic agents; Z88.2 Allergy status to sulfonamides; Z88.8 Allergy status to other drugs, medicaments and biological substances; Z01.812 Encounter for preprocedural laboratory examination; Z01.818 Encounter for other preprocedural examination; Z79.82 Long term (current) use of aspirin; Z86.73 Personal history of transient ischemic attack (TIA), and cerebral infarction without residual deficits; Z85.3 Personal history of malignant neoplasm of breast
CPT/HCPCS: 36415; 52287; 52351; 71046; 74420; 80048; 85025; 85610; 85730; 87086; 87186; 93005; C1758; J0131; J0587; J0696; J1100; J1580; J2001; J2370; J2405; J2704; J2765; J3010; Q9967

== ENCOUNTER → 2020-07-20 | Day surgery (SDC) | payer MEDICARE, OTHER ==
[2020-07-15 17:11] LABS: BASOPHILS # (AUTO) 0.1 (0.0-0.1); BASOPHILS % 0.6 % (0.0-1.0); EOSINOPHILS # (AUTO) 0.1 (0.0-0.4); EOSINOPHILS % 1.1 % (0.0-6.0); HEMATOCRIT 41.5 % (34.2-44.1); LYMPHOCYTES # (AUTO) 1.8 (1.0-3.2); LYMPHOCYTES % 21.7 % (18.0-39.1); MEAN CORPUSCULAR HEMOGLOBIN 30.4 pg (28-32); MEAN CORPUSCULAR HGB CONC 31.3 g/dL (31-35); MEAN CORPUSCULAR VOLUME 97.2 fL (81-99); MONOCYTES # (AUTO) 0.7 (0.2-0.8); NEUTROPHILS # (AUTO) 5.6 (2.1-6.9); NEUTROPHILS % 68.2 % (38.7-80.0); PLATELET COUNT 178 x10e3/uL (140-360); RED BLOOD COUNT 4.27 x10e6/uL (3.6-5.1); RED CELL DISTRIBUTION WIDTH 15.3 % (11.7-14.4)
[2020-07-15 17:26] LABS: ANION GAP 14.4 mmol/L (8-16); CALCIUM 9.5 mg/dL (8.4-10.2); CREATININE, SERUM 0.97 mg/dL (0.57-1.11); POTASSIUM 4.4 mmol/L (3.5-5.1)
[~2020-07-20] MED LIST changes: -ACETAMINOPHEN 1000 MG/100 ML 100 ML IV ONE; -DEXAMETHASONE SOD PHOS INJ 4 MG/ML VIAL ONE; +EPHEDRINE SULFATE INJ 50 MG/ML VIAL ONE; -GENTAMICIN 80MG/NS 100 ML 100 ML IV ONE; +HYDROCODONE/APAP 5MG-325MG TAB ONE; +IOPAMIDOL 300MG/ML 50ML INFUS..BTL IV ONE; -IOPAMIDOL 610MG/1ML 300 MG/ML VIAL IV ONE; -METOCLOPRAMIDE HCL 10 MG/2ML VIAL ONE; -PHENYLEPHRINE HCL 1% 10 MG/ML VIAL ONE; +TRAZODONE HCL50 MG PO
[2020-07-20 12:47] VITALS: BP 113/58
== END | disposition home or self-care (01) ==
LOC: OR 08:20
PROVIDERS: ATTEND Urology
DX: N39.46 Mixed incontinence (principal); N30.10 Interstitial cystitis (chronic) without hematuria; N31.9 Neuromuscular dysfunction of bladder, unspecified; D41.01 Neoplasm of uncertain behavior of right kidney; N20.0 Calculus of kidney; N13.30 Unspecified hydronephrosis; I12.9 Hypertensive chronic kidney disease with stage 1 through stage 4 chronic kidney disease, or unspecified chronic kidney disease; N18.2 Chronic kidney disease, stage 2 (mild); N28.1 Cyst of kidney, acquired; R35.1 Nocturia; N81.89 Other female genital prolapse; N95.2 Postmenopausal atrophic vaginitis; N81.10 Cystocele, unspecified; N81.6 Rectocele; G47.33 Obstructive sleep apnea (adult) (pediatric); J45.909 Unspecified asthma, uncomplicated; Z88.1 Allergy status to other antibiotic agents; Z88.2 Allergy status to sulfonamides; Z88.8 Allergy status to other drugs, medicaments and biological substances; Z91.048 Other nonmedicinal substance allergy status; Z01.810 Encounter for preprocedural cardiovascular examination; Z01.812 Encounter for preprocedural laboratory examination; Z01.818 Encounter for other preprocedural examination; Z11.59 Encounter for screening for other viral diseases; Z79.82 Long term (current) use of aspirin; Z68.33 Body mass index [BMI] 33.0-33.9, adult; Z96.82 Presence of neurostimulator; Z85.3 Personal history of malignant neoplasm of breast; Z84.1 Family history of disorders of kidney and ureter
CPT/HCPCS: 36415; 52287; 52351; 71046; 74420; 80048; 85025; 93005; C1758; C1769; J0587; J0696; J2001; J2405; J2704; J3010; Q9967; U0002

== ENCOUNTER → 2020-09-13 | Outpatient (CLI) | payer MEDICARE ==
[~2020-09-13] MED LIST changes: -B&O 60MG R/S 60 MG SUPP PR ONE; -BOTULINUM TOXIN TYPE A 100 UNIT VIAL IM ONE; -CEFTRIAXONE SOD 1 GM/NS 50 ML 50 ML IV ONE; -EPHEDRINE SULFATE INJ 50 MG/ML VIAL ONE; -FENTANYL CITRATE/PF 100MCG/2 ML INJ ONE; +FUROSEMIDE INJ 10 MG/ML 4 ML VIAL ONE; -HYDROCODONE/APAP 5MG-325MG TAB ONE; -IOPAMIDOL 300MG/ML 50ML INFUS..BTL IV ONE; -LIDOCAINE HCL 2% LOCAL INJ 5 ML SDV VIAL INJ ONE; -ONDANSETRON HCL INJ 2MG/ML 2ML 2 MG/ML VIAL ONE; -PROPOFOL IV EMULSION 10 MG/ML 20 ML VIAL ONE; -SEVOFLURANE INHAL SOLN 250 ML PEN BTL ONE
== END ==
LOC: NM 10:38
PROVIDERS: ATTEND Urology
DX: N13.30 Unspecified hydronephrosis (principal)
CPT/HCPCS: 78708; A9562; J1940

== ENCOUNTER → 2020-12-19 | Day surgery (SDC) | payer MEDICARE ==
[2020-12-16 10:15] LABS: BASOPHILS # (AUTO) 0.1 (0.0-0.1); BASOPHILS % 0.9 % (0.0-1.0); EOSINOPHILS # (AUTO) 0.1 (0.0-0.4); EOSINOPHILS % 1.2 % (0.0-6.0); HEMATOCRIT 38.9 % (34.2-44.1); HEMOGLOBIN 12.3 g/dL (12.0-16.0); LYMPHOCYTES # (AUTO) 1.3 (1.0-3.2); LYMPHOCYTES % 19.4 % (18.0-39.1); MEAN CORPUSCULAR HEMOGLOBIN 30.6 pg (28-32); MEAN CORPUSCULAR HGB CONC 31.6 g/dL (31-35); MEAN CORPUSCULAR VOLUME 96.8 fL (81-99); MONOCYTES # (AUTO) 0.6 (0.2-0.8); MONOCYTES % 8.9 % (4.4-11.3); NEUTROPHILS # (AUTO) 4.7 (2.1-6.9); NEUTROPHILS % 69.2 % (38.7-80.0); PLATELET COUNT 164 x10e3/uL (140-360); RED BLOOD COUNT 4.02 x10e6/uL (3.6-5.1)
[2020-12-16 10:25] LABS: ANION GAP 15.2 mmol/L (8-16); CALCIUM 8.8 mg/dL (8.4-10.2); CREATININE, SERUM 0.92 mg/dL (0.57-1.11); POTASSIUM 4.2 mmol/L (3.5-5.1)
[~2020-12-19] MED LIST changes: +B&O 60MG R/S 60 MG SUPP PR ONE; +BOTULINUM TOXIN TYPE A 100 UNIT VIAL IM ONE; +CEFTRIAXONE SOD 1 GM VIAL ONE; +DEXAMETHASONE SOD PHOS INJ 4 MG/ML VIAL ONE; +EPHEDRINE SULFATE INJ 50 MG/ML VIAL ONE; +FENTANYL CITRATE/PF 100MCG/2 ML INJ ONE; -FUROSEMIDE INJ 10 MG/ML 4 ML VIAL ONE; +IOPAMIDOL 300MG/ML 50ML INFUS..BTL IV ONE; +LIDOCAINE HCL 2% LOCAL INJ 5 ML SDV VIAL INJ ONE; +ONDANSETRON HCL INJ 2MG/ML 2ML 2 MG/ML VIAL ONE; +PROPOFOL IV EMULSION 10 MG/ML 20 ML VIAL ONE; +SEVOFLURANE INHAL SOLN 250 ML PEN BTL ONE
[2020-12-19 09:20] VITALS: BP 126/67
== END | disposition home or self-care (01) ==
LOC: OR 07:12
PROVIDERS: ATTEND Urology
DX: N39.41 Urge incontinence (principal); N39.0 Urinary tract infection, site not specified; N20.0 Calculus of kidney; N81.2 Incomplete uterovaginal prolapse; N81.6 Rectocele; N95.2 Postmenopausal atrophic vaginitis; N36.2 Urethral caruncle; N32.89 Other specified disorders of bladder; N13.30 Unspecified hydronephrosis; N13.8 Other obstructive and reflux uropathy; I10 Essential (primary) hypertension; E78.5 Hyperlipidemia, unspecified; M19.90 Unspecified osteoarthritis, unspecified site; Z88.1 Allergy status to other antibiotic agents; Z88.2 Allergy status to sulfonamides; Z88.8 Allergy status to other drugs, medicaments and biological substances; Z91.048 Other nonmedicinal substance allergy status; Z01.810 Encounter for preprocedural cardiovascular examination; Z01.812 Encounter for preprocedural laboratory examination; Z20.822 Contact with and (suspected) exposure to COVID-19; Z85.3 Personal history of malignant neoplasm of breast
CPT/HCPCS: 36415; 52005; 52287; 74420; 80048; 85025; 93005; J0587; J0696; J1100; J2001; J2405; J2704; J3010; Q9967; U0002